=== PATIENT | male | born 1955 | race Caucasian/White ===

== ENCOUNTER 2017-05-10 19:56 | Emergency (ER) | payer OTHER ==
[2017-05-10 20:06] VITALS: PULSE 56; TEMP 97.8; BMI 30.1
[2017-05-10 20:38] LABS: EOSINOPHIL 3.2 % (0-4.5); MCH 28.9 pg (25.7-33.7); MCHC 32.9 g/dl (32.0-35.9); MEAN PLT VOLUME 10.2 fl (7.5-11.1); NEUTROPHILS 60.2 % (42.8-82.8); PLATELET COUNT 237 K/MM3 (134-434); RDW 13.1 % (11.9-15.9); WHITE BLOOD COUNT 8.4 K/mm3 (4.0-10.8)
[2017-05-10 20:49] LABS: INR 1.08 (0.82-1.09); PROTHROMBIN TIME (PATIENT) 12.1 SEC (10.2-13.0)
[2017-05-10 21:01] LABS: CPK 151 IU/L (39-308)
[2017-05-10 21:03] LABS: TROPONIN I (DFP) < 0.03 ng/ml (0.03-0.50)
[2017-05-10] MEDS ORDERED: PANTOPRAZOLE SODIUM 40 MG in SODIUM CHLORIDE 100 ML IVPB ONE (21:07)
[2017-05-10 21:10] LABS: ALBUMIN 4.2 g/dl (3.5-5.0); ALK PHOS 103 U/L (32-92); ANION GAP 3 (8-16); BILIRUBIN,TOTAL 0.6 mg/dl (0.2-1.0); CALCIUM 10.2 mg/dl (8.4-10.2); CO2 29 mmol/L (22-28); CREATININE 1.1 mg/dl (0.6-1.3); GLUCOSE,RANDOM 100 mg/dl (74-106); SGOT/AST 17 U/L (10-42); SGPT/ALT 20 U/L (10-40); TOT PROT 7.6 g/dl (6.4-8.3)
[2017-05-10] MEDS ORDERED: PANTOPRAZOLE SODIUM 40 MG VIAL ONE (21:11)
[2017-05-10 21:44] VITALS: BP 146/92
--- NOTE | 2017-05-10 22:01 | PDOC ---
History of Present Illness - General Chief Complaint: Pain, Acute Stated Complaint: BURNING SENSATION IN ABDOMEN History Source: Patient Exam Limitations: No Limitations - History of Present Illness Initial Comments: 05/10/17 21:59 The patient is a 61 year old male with a significant past medical of HTN, HLD, GERD, heart disease s/p open heart surgery 5 years ago, bleeding ulcer, who presents to the ED with worsening epigastric pain that began 2 weeks ago. Patient describes the pain as burning and radiating throughout the abdomen. Patient states the pain is constant and a 5/10 in severity. Patient states the pain dissipates when he eats or has tums but does not disappear. He states he had an episode of bright red stool this morning, but this is common for him. Patient denies chest pain, fever, chills, nausea, vomiting, diarrhea. Denies dysuria, frequency, hematuria. Patient also comes in stating he has had SOB with exercise and pain in both arms for the past few weeks. 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 Scheduled for Cardiac Cath at [facility] on 05/21. Patient is a former smoker (stopped 7 years ago). Past History - Past Medical History Allergies/Adverse Reactions: Allergies Allergy/AdvReac Type Severity Reaction Status Date / Time No Known Allergies Allergy Verified 05/10/17 19:58 Home Medications: Ambulatory Orders Atorvastatin Ca [Lipitor] 80 mg PO HS 05/10/17 Losartan Potassium 25 mg PO DAILY 05/10/17 Metoprolol Succinate [Toprol Xl -] 50 mg PO DAILY 05/10/17 Anemia: No Asthma: No Cancer: No Cardiac Disorders: Yes ([place] 5 YEARS AGO) CVA: No COPD: No CHF: No Dementia: No Diabetes: No GI Disorders: Yes (ULCER) Disorders: No HTN: Yes Hypercholesterolemia: No Liver Disease: No Seizures: No Thyroid Disease: No - Surgical History Abdominal Surgery: No Appendectomy: No Cardiac Surgery: Yes (BYPASS) Cholecystectomy: No Lung Surgery: No Neurologic Surgery: No Orthopedic Surgery: No - Immunization History Td Vaccination: No - Suicide/Smoking/Psychosocial Hx Smoking Status: Yes Smoking History: Former smoker Have you smoked in the past 12 months: No Number of Cigarettes Smoked Daily: 1 If you are a former smoker, when did you quit?: 7 YEARS Cigars Per Day: 0 Information on smoking cessation initiated: No Hx Alcohol Use: No Drug/Substance Use Hx: No Substance Use Type: Alcohol Hx Substance Use Treatment: No Review of Systems - Review of Systems Able to Perform ROS?: Yes Comments:: 05/10/17 22:00 GENERAL/CONSTITUTIONAL: No fever or chills. No weakness. HEAD, EYES, EARS, NOSE AND THROAT: No change in vision. No ear pain or discharge. No sore throat. CARDIOVASCULAR: + SOB with exercise. No chest pain. RESPIRATORY: No cough, wheezing, or hemoptysis. GASTROINTESTINAL: + epigastric pain. + bloody stool. No nausea, vomiting, diarrhea or constipation. GENITOURINARY: No dysuria, frequency, or change in urination. MUSCULOSKELETAL: No joint or muscle swelling or pain. No neck or back pain. SKIN: No rash NEUROLOGIC: No headache, vertigo, loss of consciousness, or change in strength/ sensation. ENDOCRINE: No increased thirst. No abnormal weight change. HEMATOLOGIC/LYMPHATIC: No anemia, easy bleeding, or history of blood clots. ALLERGIC/IMMUNOLOGIC: No hives or skin allergy. *Physical Exam - Vital Signs Last Vital Signs Temp Pulse Resp BP Pulse Ox 97.8 F 56 L 16 146/92 99 05/10/17 20:01 05/10/17 20:01 05/10/17 20:01 05/10/17 21:43 05/10/17 20:01 - Physical Exam Comments: 05/10/17 22:00 GENERAL: Awake, alert, and fully oriented, in no acute distress HEAD: No signs of trauma EYES: PERRLA, EOMI, sclera anicteric, conjunctiva clear ENT: Auricles normal inspection, hearing grossly normal, nares patent, oropharynx clear without exudates. Moist mucosa NECK: Normal ROM, supple, no lymphadenopathy, JVD, or masses LUNGS: Breath sounds equal, clear to auscultation bilaterally. No wheezes, and no crackles HEART: Regular rate and rhythm, normal S1 and S2, no murmurs, rubs or gallops ABDOMEN: + mild epigastric tenderness and mild right upper quad tenderness without rebound or guarding. no [place] sign. no masses. No nausea, vomiting, diarrhea or constipation. Soft, nontender, normoactive bowel sounds. EXTREMITIES: Normal range of motion, no edema. No clubbing or cyanosis. No cords, erythema, or tenderness NEUROLOGICAL: Cranial nerves II through XII grossly intact. Normal speech, normal gait SKIN: Warm, Dry, normal turgor, no rashes or lesions noted. Heart Score/ECG Review - ECG Intrepretation Comment:: 05/10/17 22:02 Sinus bradycardia, 54 bpm. Possible left atrial enlargement. Inferior infarct, age undetermined. ED Treatment Course - LABORATORY CBC & Chemistry Diagram: 05/10/17 20:30 05/10/17 20:30 - ADDITIONAL ORDERS Additional order review: Laboratory Results 05/10/17 05/10/17 05/10/17 21:15 20:30 20:30 PT with INR 12.1 INR 1.08 Sodium Potassium Chloride Carbon Dioxide Anion Gap BUN Creatinine Creat Clearance w eGFR Random Glucose Calcium Total Bilirubin AST ALT Alkaline Phosphatase Creatine Kinase 151 Creatine Kinase Index 1.5 CK-MB (CK-2) 2.3 Troponin I < 0.03 L Total Protein Albumin Stool Occult Blood Positive 05/10/17 20:30 PT with INR INR Sodium 136 Potassium 4.1 Chloride 104 Carbon Dioxide 29 H Anion Gap 3 L BUN 20 H Creatinine 1.1 Creat Clearance w eGFR > 60 Random Glucose 100 Calcium 10.2 Total Bilirubin 0.6 AST 17 ALT 20 Alkaline Phosphatase 103 H Creatine Kinase Creatine Kinase Index CK-MB (CK-2) Troponin I Total Protein 7.6 Albumin 4.2 Stool Occult Blood 05/10/17 20:30 RBC 4.52 MCV 88.0 MCHC 32.9 RDW 13.1 MPV 10.2 Neutrophils % 60.2 Lymphocytes % 26.2 Monocytes % 9.4 Eosinophils % 3.2 Basophils % 1.0 - Medications Given in the ED: ED Medications Discontinued Medications Generic Name Dose Route Start Last Admin Trade Name Freq PRN Reason Stop Dose Admin Pantoprazole Sodium 40 mg/ 100 mls @ 200 mls/hr 05/10/17 21:07 05/10/17 21:16 Sodium Chloride IVPB 05/10/17 21:36 200 mls/hr ONCE ONE Administration *DC/Admit/Observation/Transfer - Discharge Dispostion Condition at time of disposition: Stable - Referrals Referrals: Nader Wiley MD [Primary Care Provider] - - Attestations Scribe Attestion: 10/16/17 22:01 Documentation prepared by Jaswinder Mcfarland, acting as medical records technician for Laura Linares MD.
--- NOTE | 2017-05-11 23:00 | EKG ---
Test Reason : Blood Pressure : / mmHG Vent. Rate : 054 BPM Atrial Rate : 054 BPM P-R Int : 192 ms QRS Dur : 086 ms QT Int : 426 ms P-R-T Axes : 054 -02 118 degrees QTc Int : 403 ms SINUS BRADYCARDIA POSSIBLE LEFT ATRIAL ENLARGEMENT INFERIOR INFARCT , AGE UNDETERMINED CANNOT RULE OUT ANTERIOR INFARCT (CITED ON OR BEFORE 02-AUG-2011) ABNORMAL ECG WHEN COMPARED WITH ECG OF 02-AUG-2011 20:58, INFERIOR INFARCT IS NOW PRESENT QUESTIONABLE CHANGE IN INITIAL FORCES OF SEPTAL LEADS REPEAT EKG IF CLINICALLY INDICATED Confirmed by CLOVER HERNÁNDEZ MD ([id number]) on 05/11/2017 11:00:44 PM Referred By: DR WALLACE Confirmed By:CLOVER HERNÁNDEZ MD
== END 2017-05-10 22:19 | disposition home or self-care (01) ==
LOC: FER 19:56
PROC: 3E033GC Introduction of Other Therapeutic Substance into Peripheral Vein, Percutaneous Approach (ICD-10-PCS; principal; 2017-05-10)
DX: R10.13 Epigastric pain (principal); I10 Essential (primary) hypertension; E78.5 Hyperlipidemia, unspecified; K21.9 Gastro-esophageal reflux disease without esophagitis; I25.2 Old myocardial infarction; Z87.891 Personal history of nicotine dependence
CPT/HCPCS: 36415; 80053; 82272; 82550; 82553; 84484; 85025; 85610; 93005; 93010; 99282-25

== ENCOUNTER 2018-08-27 18:30 | Inpatient (IN) | payer OTHER | END 2018-08-29 18:13 | disposition home or self-care (01) | LOC: JER 18:30 → JERBED 20:46 → J4W 21:48 ==

== ENCOUNTER 2019-05-27 17:59 | Inpatient (IN) | payer OTHER ==
--- NOTE | 2019-05-27 18:35 | PDOC ---
History of Present Illness - General Chief Complaint: Bleeding from Anus Stated Complaint: RECTAL BLEEDING Time Seen by Provider: 05/27/19 18:34 - History of Present Illness Initial Comments: 05/27/19 18:47 63 year old male with a significant past medical of HTN, HLD, GERD, heart disease s/p open heart surgery 5 years ago, prior bleeding stomach ulcer, who presents to the ED with with 4 days pf dark stools and weakness. The patient reports some slight rlq tenderness. The patient denies any chest pain, shortness of breath, nausea, vomiting, diarrhea or constipation. ROS GENERAL/CONSTITUTIONAL: No fever or chills. No weakness. HEAD, EYES, EARS, NOSE AND THROAT: No change in vision. No ear pain or discharge. No sore throat. CARDIOVASCULAR: No chest pain or shortness of breath RESPIRATORY: No cough, wheezing, or hemoptysis. GASTROINTESTINAL: No nausea, vomiting, diarrhea or constipation. GENITOURINARY: No dysuria, frequency, or change in urination. MUSCULOSKELETAL: No joint or muscle swelling or pain. No neck or back pain. SKIN: No rash NEUROLOGIC: No headache, vertigo, loss of consciousness, or change in strength/ sensation. PE GENERAL: Awake, alert, and fully oriented, in no acute distress HEAD: No signs of trauma, normocephalic, atraumatic EYES: , EOMI, sclera anicteric, + slight conjunctival pallor ENT: oropharynx clear without exudates. Moist mucosa NECK: Normal ROM, supple LUNGS: No distress, speaks full sentences, clear to auscultation bilaterally HEART: Regular rate and rhythm, normal S1 and S2, no murmurs, rubs or gallops, peripheral pulses normal and equal bilaterally. ABDOMEN: Soft, + very slight tenderness to RLQ. No guarding, no rebound. No masses EXTREMITIES : Normal inspection, Normal range of motion, no edema. No clubbing or cyanosis. NEUROLOGICAL: Cranial nerves II through XII grossly intact. Normal speech, normal gait, no focal sensorimotor deficits SKIN: Warm, Dry, normal turgor, no rashes or lesions noted RECTAL: no external henorrhoids, no gross blood, good rectal tone MDM DDX including but not limited to: LGIB (fissure vs hemorrhoid vs diverticular dz vs Crohns vs UC) vs UGIB (PUD vs gastroesophageal varices vs erosive gastritis/ esophagitis) ED Course: patient with H/H drop from baseline 2prbc ordered Case discussed with Dr. Bond who precommends protonix drip, npo after midnight, will see patient in am clear liquids in am if hd stable plan for admission ekg: nsr at 73bpm, nonspecific t wave changes Ashlee Evans, PGY2 Emergency Medicine 05/27/19 20:12 Past History - Past Medical History Allergies/Adverse Reactions: Allergies Allergy/AdvReac Type Severity Reaction Status Date / Time No Known Allergies Allergy Verified 05/27/19 18:01 Home Medications: Ambulatory Orders Atorvastatin Ca [Lipitor] 80 mg PO HS 05/10/17 Metoprolol Succinate [Toprol XL -] 50 mg PO DAILY 05/10/17 Amlodipine Besylate [Norvasc -] 5 mg PO DAILY 08/27/18 Aspirin [ASA -] 81 mg PO DAILY 08/27/18 Furosemide [Lasix -] 20 mg PO DAILY 08/27/18 Anemia: No Asthma: No Cancer: No Cardiac Disorders: Yes ([place] 5 YEARS AGO) CVA: No COPD: No CHF: No Dementia: No Diabetes: No GI Disorders: Yes (ULCER) Disorders: No HTN: Yes Hypercholesterolemia: No Liver Disease: No Seizures: No Thyroid Disease: No - Surgical History Abdominal Surgery: No Appendectomy: No Cardiac Surgery: Yes (BYPASS) Cholecystectomy: No Lung Surgery: No Neurologic Surgery: No Orthopedic Surgery: No - Immunization History Td Vaccination: No - Psycho Social/Smoking Cessation Hx Smoking Status: Yes Smoking History: Never smoked Have you smoked in the past 12 months: No Number of Cigarettes Smoked Daily: 1 If you are a former smoker, when did you quit?: 7 YEARS Cigars Per Day: 0 Hx Alcohol Use: No Drug/Substance Use Hx: No Substance Use Type: Alcohol Hx Substance Use Treatment: No *Physical Exam - Vital Signs Last Vital Signs Temp Pulse Resp BP Pulse Ox 98.2 F 87 18 134/77 99 05/27/19 18:00 05/27/19 18:00 05/27/19 18:00 05/27/19 18:00 05/27/19 18:00 ED Treatment Course - LABORATORY CBC & Chemistry Diagram: 05/27/19 18:59 05/27/19 18:59
[2019-05-27 19:08] LABS: HEMATOCRIT 25.6 % (35.4-49); LYMPH % 24.4 % (8-40); MCH 31.4 pg (25.7-33.7); MCHC 35.3 g/dl (32.0-35.9); MEAN PLT VOLUME 9.2 fl (7.5-11.1); MONO % 7.5 % (3.8-10.2); NEUT % 65.1 % (42.8-82.8); PLATELET COUNT 225 K/MM3 (134-434); RBC 2.88 M/mm3 (4.00-5.60); RDW 13.6 % (11.9-15.9); WHITE BLOOD COUNT 7.1 K/mm3 (4.0-10.0)
[2019-05-27 19:21] LABS: INR 1.03 (0.83-1.09); PROTHROMBIN TIME (PATIENT) 12.2 SEC (9.7-13.0)
[2019-05-27 19:23] LABS: ACTIVATED PTT 29.8 SECONDS (25.2-36.5)
[2019-05-27 19:24] LABS: EPI CELLS 0.7 /HPF (0-5/HPF); HYALINE CASTS 1 /lpf (0-8); PH,URINE 5.5 (5.0-8.0); URINE APPEARANCE CLEAR; URINE BACTERIA 0.5 /hpf (NEGATIVE); URINE BILIRUBIN NEGATIVE (NEGATIVE); URINE COLOR YELLOW; URINE GLUCOSE (UA) NEGATIVE (NEGATIVE); URINE KETONE NEGATIVE (NEGATIVE); URINE LEUK ESTERASE TRACE (NEGATIVE); URINE NITRITE NEGATIVE (NEGATIVE); URINE PROTEIN NEGATIVE (NEGATIVE); URINE RBC 1 /hpf (0-4); URINE UROBILINOGEN 0.2 mg/dL (0.2-1.0); URINE WBC 7 /hpf (0-5)
--- NOTE | 2019-05-27 19:35 | PDOC ---
Attending Attestation - Resident Resident Name: Ashlee Evans - ED Attending Attestation I have performed the following: The case was reviewed & discussed with the resident, I agree w/resident's findings & plan - HPI HPI: 05/27/19 23:18 agree with resident hpi - Physicial Exam PE: 05/27/19 23:18 see resident exam - Medical Decision Making 05/27/19 23:19 63-year-old male with rectal bleeding Previous endoscopy consistent with peptic ulcer disease Stool guaiac is positive, exam consistent with melena GI to consult Will admit to medical service for further evaluation
[2019-05-27 19:38] LABS: ALBUMIN 3.3 g/dl (3.4-5.0); BILIRUBIN,TOTAL 0.2 mg/dL (0.2-1); BLOOD UREA NITROGEN 32.2 mg/dL (7-18); CALCIUM 8.6 mg/dL (8.5-10.1); CREATININE 0.8 mg/dL (0.55-1.3); POTASSIUM 4.2 mmol/L (3.5-5.1); TOT PROT 6.4 g/dl (6.4-8.2)
[2019-05-27] MEDS ORDERED: PANTOPRAZOLE SODIUM 40 MG VIAL IVPUSH ONE (19:41)
[2019-05-27] MEDS ORDERED: PANTOPRAZOLE SODIUM 40 MG/100 ML BAG IVPB ONE (19:46)
[2019-05-27] MEDS ORDERED: PANTOPRAZOLE SODIUM 40 MG VIAL ONE (20:23)
[2019-05-27] MEDS: PANTOPRAZOLE SODIUM 80 MG in SODIUM CHLORIDE 100 ML IVPB SCH (21:04)
[2019-05-27] MEDS ORDERED: SODIUM CHLORIDE 1,000 ML IV SCH (23:00)
--- NOTE | 2019-05-27 23:03 | PN ---
Teaching Attending Note Name of Resident: Rod Haider ATTENDING PHYSICIAN STATEMENT I saw and evaluated the patient. I reviewed the resident's note and discussed the case with the resident. I agree with the resident's findings and plan as documented. SUBJECTIVE: 63-year-old male with a history of hypertension, dyslipidemia, GERD, CAD status post CABG 10 years ago. Bleeding peptic ulcer 4 days of dark stools and weakness. Denied any vomiting, chest pain, shortness of breath, diarrhea. He does endorse some epigastric tenderness. Patient was seen by Dr. Mixon this past August s/p egd - showed small nonbleeding ulcer in duodenal bulb vs. pyloric channel as likely source of bleed. OBJECTIVE: Last Vital Signs Temp Pulse Resp BP Pulse Ox 98 F 73 18 115/68 97 05/27/19 20:35 05/27/19 20:35 05/27/19 20:35 05/27/19 20:35 05/27/19 20:35 GENERAL: Well developed, well nourished. Awake and alert. No acute distress. HEENT: Normocephalic, atraumatic. PERRLA, EOMI. conjunctival pallor. Sclera are non- icteric. Moist mucous membranes. Oropharynx is clear. NECK: Supple. Full ROM. No JVD. Carotid pulses 2+ and symmetric, without bruits. No thyromegaly. No lymphadenopathy. CARDIOVASCULAR: Regular rate and rhythm. No murmurs, rubs, or gallops. Distal pulses are 2+ and symmetric. PULMONARY: No evidence of respiratory distress. Lungs clear to auscultation bilaterally. No wheezing, rales or rhonchi. ABDOMINAL: Soft. Non-tender. Non-distended. No rebound or guarding. No organomegaly. Normoactive bowel sounds. MUSCULOSKELETAL Normal range of motion at all joints. No bony deformities or tenderness. No CVA tenderness. EXTREMITIES: No cyanosis. No clubbing. No edema. No calf tenderness. SKIN: Warm and dry. Normal capillary refill. No rashes. No jaundice. PSYCHIATRIC: Cooperative. Good eye contact. Appropriate mood and affect. Abnormal Lab Results 05/27/19 05/27/19 05/27/19 18:59 18:59 20:08 RBC 2.88 L Hgb 9.0 L Hct 25.6 L D Anion Gap 3 L BUN 32.2 H Albumin 3.3 L Crossmatch See Detail Imaging reviewed ASSESSMENT AND PLAN: #63-year-old male with suspected upper GI bleed. Likely secondary to peptic ulcers which are known from his previous medical history. Patient is hemodynamically stable for admission to floor at this time. Admit to [facility] Protonix drip IV fluid hydration Monitor CBC every 6 hours Keep n.p.o. BGM's every 6 hours Monitor vital signs closely GI consult Stop aspirin #Normocytic anemiasuspected to be secondary to upper GI bleed. Noted to have drop in hemoglobin from 11 g per deciliter to 9 g/dL on this admission. Anemia may be multifactorial. Ferritin, iron studies, vitamin B12, red blood smear Monitor CBC closely If persistent melena or dramatic drop in CBC would transfuse PRBC #CAD status post CABG Hold aspirin as patient is bleeding Continue metoprolol succinate Continue high-dose Lipitor Continue Lasix for now but monitor BP closely Continue amlodipine SCDs for DVT prophylaxis
--- NOTE | 2019-05-28 01:06 | HP ---
CHIEF COMPLAINT: Blood in stool PCP: Does not have one. Industrial Waste Inspector: Dr Garsia HISTORY OF PRESENT ILLNESS: 63 y/o M, pmh of CAD s/p CABG 5 years ago at [facility], prior transfusions for GI bleed, PUD, HTN, HLD, seizure hx, presents c/o of blood in the stool. As per pt , on night when he used the bathroom, he found blood in the stool like he had in the past, which prompted him to come to the hospital. In August 2018 , he was admitted for a blood in the stool 2/2 to a PUD diagnosed on EGD, requiring a transfusion at the time. The EGD showed small nonbleeding ulcer in duodenal bulb vs. pyloric channel as likely source of bleed. Pt was suppose to f /u with his GI doctor, but due to lack of insurance, he was not able to f/u. Pt also reports a similar episode 10 years ago, during which he required a transfusion and a EGD also. Upon arrival to the ED, pt was found to be anemia on his lab w/ a Hg of 9. He was transfused 1 u PRBC in the ED. Currently, pt admits to hematochezia but pt denies f/c/n/v/d, chest pain, sob, dizziness, abdominal pain, numbness or tingling, urinary symptoms. ER course was notable for: (1) 1 u PRBC transfused (2) CT a/p- atelectasis and scarring in lung bases, [id number] renal calculi at the right ureteropelvic junction, 2.4 cm fusiform aneurysm of the mid abdominal aorta (3) Recent Travel: denies PAST MEDICAL HISTORY: CAD s/p CABG 5 years ago at [facility], prior transfusions for GI bleed, PUD, HTN, HLD , Hx of Seizures PAST SURGICAL HISTORY: CAD s/p CABG, multiple EGDs Social History: Smoking: Alcohol: Drugs: Allergies No Known Allergies Allergy (Verified 05/27/19 18:01) HOME MEDICATIONS: Home Medications Medication Instructions Recorded Atorvastatin Ca [Lipitor] 80 mg PO HS 05/10/17 Metoprolol Succinate [Toprol XL -] 50 mg PO DAILY 05/10/17 Amlodipine Besylate [Norvasc -] 5 mg PO DAILY 08/27/18 Aspirin [ASA -] 81 mg PO DAILY 08/27/18 Furosemide [Lasix -] 20 mg PO DAILY 08/27/18 REVIEW OF SYSTEMS CONSTITUTIONAL: Absent: fever, chills, diaphoresis, loss of appetite, weight change HEENT: Absent: rhinorrhea, , visual changes CARDIOVASCULAR: Absent: chest pain, syncope, palpitations, irregular heart rate, lightheadedness , RESPIRATORY: Absent: cough, shortness of breath, dyspnea with exertion, orthopnea, wheezing, GASTROINTESTINAL: Admits to hematochezia Absent: abdominal pain, abdominal distension, nausea, vomiting, diarrhea, constipation NEUROLOGIC: Admits to hx of seizures Absent: headache, focal weakness or paresthesias, dizziness, unsteady gait, bladder or bowel incontinence PHYSICAL EXAMINATION Vital Signs - 24 hr 05/27/19 05/27/19 18:00 20:35 Temperature 98.2 F 98 F Pulse Rate 87 Pulse Rate [ 73 Radial] Respiratory 18 18 Rate Blood Pressure 134/77 Blood Pressure 115/68 [Left Arm] O2 Sat by Pulse 99 97 Oximetry (%) GENERAL: Awake, alert, and fully oriented, in no acute distress. EYES: Pupils equal, round and reactive to light, extraocular movements intact, EARS, NOSE, THROAT: Moist mucous membranes. NECK: Normal range of motion, supple LUNGS: Breath sounds equal, clear to auscultation bilaterally. No wheezes, and no crackles. HEART: Regular rate and rhythm, normal S1 and S2 without murmur, rub or gallop. ABDOMEN: Soft, Tender to deep palpation in the Left lateral abdominal wall and LUQ, not distended, normoactive bowel sounds, no guarding, no rebound, no masses. UPPER EXTREMITIES: 2+ pulses, warm, well-perfused. No cyanosis. LOWER EXTREMITIES: 2+ pulses, warm, well-perfused. PSYCHIATRIC: Cooperative. Good eye contact. Appropriate mood and affect. Laboratory Results - last 24 hr CBC,CMP WBC 7.1 K/mm3 (4.0-10.0) 05/27/19 18:59 RBC 2.88 M/mm3 (4.00-5.60) L 05/27/19 18:59 Hgb 9.0 GM/dL (11.7-16.9) L 05/27/19 18:59 Hct 25.6 % (35.4-49) L D 05/27/19 18:59 MCV 89.0 fl (80-96) 05/27/19 18:59 MCH 31.4 pg (25.7-33.7) 05/27/19 18:59 MCHC 35.3 g/dl (32.0-35.9) 05/27/19 18:59 RDW 13.6 % (11.9-15.9) 05/27/19 18:59 Plt Count 225 K/MM3 (134-434) 05/27/19 18:59 MPV 9.2 fl (7.5-11.1) 05/27/19 18:59 Absolute Neuts (auto) 4.6 K/mm3 (1.5-8.0) 05/27/19 18:59 Neutrophils % 65.1 % (42.8-82.8) 05/27/19 18:59 Lymphocytes % 24.4 % (8-40) 05/27/19 18:59 Monocytes % 7.5 % (3.8-10.2) 05/27/19 18:59 Eosinophils % 2.0 % (0-4.5) 05/27/19 18:59 Basophils % 1.0 % (0-2.0) 05/27/19 18:59 Nucleated RBC % 0 % (0-0) 05/27/19 18:59 Sodium 139 mmol/L (136-145) 05/27/19 18:59 Potassium 4.2 mmol/L (3.5-5.1) 05/27/19 18:59 Chloride 106 mmol/L (98-107) 05/27/19 18:59 Carbon Dioxide 29 mmol/L (21-32) 05/27/19 18:59 Anion Gap 3 MMOL/L (8-16) L 05/27/19 18:59 BUN 32.2 mg/dL (7-18) H 05/27/19 18:59 Creatinine 0.8 mg/dL (0.55-1.3) 05/27/19 18:59 Est GFR (CKD-EPI)AfAm 110.19 05/27/19 18:59 Est GFR (CKD-EPI)NonAf 95.07 05/27/19 18:59 Random Glucose 92 mg/dL (74-106) 05/27/19 18:59 Calcium 8.6 mg/dL (8.5-10.1) 05/27/19 18:59 Total Bilirubin 0.2 mg/dL (0.2-1) 05/27/19 18:59 AST 17 U/L (15-37) 05/27/19 18:59 ALT 26 U/L (13-61) 05/27/19 18:59 Alkaline Phosphatase 88 U/L (45-117) 05/27/19 18:59 Troponin I 0.02 ng/ml (0.00-0.05) 05/27/19 18:59 Total Protein 6.4 g/dl (6.4-8.2) 05/27/19 18:59 Albumin 3.3 g/dl (3.4-5.0) L 05/27/19 18:59 ASSESSMENT/PLAN: 63 y/o M, pmh of CAD s/p CABG 5 years ago at [facility], prior transfusions for GI bleed, PUD, HTN, HLD, seizure hx, presents c/o of blood in the stool likely secondary to peptic ulcers due to pertinent hx of ulcers #Hematochezia 2/2 to PUD IV protonix Fluids at 83 CBC and CMP Q6H NPO expect for PO meds Monitor BGM every 6 hrs Monitor vital signs closely GI consult in the am Discontinue aspirin #Normocytic anemia 2/2 to GI bleed Drop in hemoglobin from 11 to 9 g/dL on this admission Previous visits were Hg of 14 Ferritin, iron studies, vitamin B12, red blood smear- ordered #CAD s/p CABG Hold aspirin due to risk of worsening GI bleed #HTN Continue amlodipine Cont metoprolol succinate Cont Lasix for now but monitor BP closely #HLD Continue high-dose Lipitor #Abdominal Aortic aneurysm CT a/p- atelectasis and scarring in lung bases, [id number] renal calculi at the right ureteropelvic junction, 2.4 cm fusiform aneurysm of the mid abdominal aorta Monitor for now #DVT ppx SCDs FEN monitor lytes NPO Dispo: consult GI in am, keep NPO, cont IV protonix Visit type - Emergency Visit Emergency Visit: Yes ED Registration Date: 05/27/19 Care time: The patient presented to the Emergency Department on the above date and was hospitalized for further evaluation of their emergent condition. - New Patient This patient is new to me today: Yes Date on this admission: 05/31/19 - Critical Care Critical Care patient: No ATTENDING PHYSICIAN STATEMENT I saw and evaluated the patient. I reviewed the resident's note and discussed the case with the resident. I agree with the resident's findings and plan as documented. SUBJECTIVE: OBJECTIVE: ASSESSMENT AND PLAN:
[2019-05-28] MEDS: PANTOPRAZOLE SODIUM 80 MG in SODIUM CHLORIDE 100 ML IVPB SCH ×3 (02:47→19:00)
[2019-05-28 03:08] VITALS: BMI 26.9
--- NOTE | 2019-05-28 07:06 | CON.GI ---
Consult - History of Present Illness History of Present Illness: GI CONSULT DICTATED NPO / IVF' S PPI INFUSION HOLD ASA EGD WEDNESDAY MORNING WILL DISCUSS WITH DR Sachi GUTIERREZ WHO WILL RESUME CARE WEDNESDAY IF ANY SIGN OF OVERT GI BLEED WILL PLAN FOR URGENT EGD TODAY SEE FULL CONSULT DICTATED - Past Medical History Cardio/Vascular: Yes: CAD, HTN, Other (CABG) - Alcohol/Substance Use Hx Alcohol Use: No - Smoking History Smoking history: Never smoked Have you smoked in the past 12 months: No Aproximately how many cigarettes per day: 1 If you are a former smoker, when did you quit?: 7 YEARS Home Medications - Allergies Allergies/Adverse Reactions: Allergies Allergy/AdvReac Type Severity Reaction Status Date / Time No Known Allergies Allergy Verified 05/27/19 18:01 - Home Medications Home Medications: Ambulatory Orders Atorvastatin Ca [Lipitor] 80 mg PO HS 05/10/17 Metoprolol Succinate [Toprol XL -] 50 mg PO DAILY 05/10/17 Amlodipine Besylate [Norvasc -] 5 mg PO DAILY 08/27/18 Aspirin [ASA -] 81 mg PO DAILY 08/27/18 Furosemide [Lasix -] 20 mg PO DAILY 08/27/18 Physical Exam-GI Vital Signs: Vital Signs Temperature 97.6 F 05/27/19 21:30 Pulse Rate 77 05/27/19 21:30 Respiratory Rate 18 05/27/19 21:30 Blood Pressure 132/80 05/27/19 21:30 O2 Sat by Pulse Oximetry (%) 97 05/27/19 21:30 Labs: CBC, BMP 05/27/19 18:59 05/27/19 18:59 INR, PTT INR 1.03 (0.83-1.09) 05/27/19 18:59
[2019-05-28 07:40] LABS: BASO % 0.6 % (0-2.0); EOS % 0.5 % (0-4.5); HEMATOCRIT 22.6 % (35.4-49); HEMOGLOBIN 7.6 GM/dL (11.7-16.9); LYMPH % 18.3 % (8-40); MCH 30.2 pg (25.7-33.7); MCHC 33.9 g/dl (32.0-35.9); MEAN CELL VOLUME 89.1 fl (80-96); MEAN PLT VOLUME 9.4 fl (7.5-11.1); MONO % 5.8 % (3.8-10.2); NEUT % 74.8 % (42.8-82.8); PLATELET COUNT 206 K/MM3 (134-434); RBC 2.53 M/mm3 (4.00-5.60); RDW 13.8 % (11.9-15.9); WHITE BLOOD COUNT 8.4 K/mm3 (4.0-10.0)
[2019-05-28 08:22] LABS: ALBUMIN 3.2 g/dl (3.4-5.0); BILIRUBIN,TOTAL 0.3 mg/dL (0.2-1); CALCIUM 8.3 mg/dL (8.5-10.1); CREATININE 0.7 mg/dL (0.55-1.3); POTASSIUM 4.3 mmol/L (3.5-5.1); TOT PROT 5.7 g/dl (6.4-8.2)
--- NOTE | 2019-05-28 08:40 | PN ---
Progress Note (short form) - Note Progress Note: Subjective: No fever or chills. No COCHRAN , feels light headed when he tried to get up. last BM was 5 pm yesterday. reports melena since . he denies abd pain or rectal pain. last ASA was 2pm yesterday. . has nausea but no vomiting Objective: Vital Signs: Last Vital Signs Temp Pulse Resp BP Pulse Ox 98.5 F 73 18 96/60 97 05/28/19 06:00 05/28/19 06:00 05/28/19 06:00 05/28/19 06:00 05/27/19 21:30 Laboratory Results - last 24 hr 05/27/19 05/27/19 05/27/19 18:59 18:59 18:59 WBC 7.1 RBC 2.88 L Hgb 9.0 L Hct 25.6 L D MCV 89.0 MCH 31.4 MCHC 35.3 RDW 13.6 Plt Count 225 MPV 9.2 Absolute Neuts (auto) 4.6 Neutrophils % 65.1 Lymphocytes % 24.4 Monocytes % 7.5 Eosinophils % 2.0 Basophils % 1.0 Nucleated RBC % 0 PT with INR 12.20 INR 1.03 PTT (Actin FS) 29.8 Sodium 139 Potassium 4.2 Chloride 106 Carbon Dioxide 29 Anion Gap 3 L BUN 32.2 H Creatinine 0.8 Est GFR (CKD-EPI)AfAm 110.19 Est GFR (CKD-EPI)NonAf 95.07 Random Glucose 92 Calcium 8.6 Total Bilirubin 0.2 AST 17 ALT 26 Alkaline Phosphatase 88 Troponin I 0.02 Total Protein 6.4 Albumin 3.3 L Urine Color Urine Appearance Urine pH Ur Specific [place] Urine Protein Urine Glucose (UA) Urine Ketones Urine Blood Urine Nitrite Urine Bilirubin Urine Urobilinogen Ur Leukocyte Esterase Urine WBC (Auto) Urine RBC (Auto) Urine Casts (Auto) U Epithel Cells (Auto) Urine Bacteria (Auto) Stool Occult Blood Blood Type Antibody Screen Crossmatch 05/27/19 05/27/19 05/27/19 19:00 19:10 20:08 WBC RBC Hgb Hct MCV MCH MCHC RDW Plt Count MPV Absolute Neuts (auto) Neutrophils % Lymphocytes % Monocytes % Eosinophils % Basophils % Nucleated RBC % PT with INR INR PTT (Actin FS) Sodium Potassium Chloride Carbon Dioxide Anion Gap BUN Creatinine Est GFR (CKD-EPI)AfAm Est GFR (CKD-EPI)NonAf Random Glucose Calcium Total Bilirubin AST ALT Alkaline Phosphatase Troponin I Total Protein Albumin Urine Color Yellow Urine Appearance Clear Urine pH 5.5 Ur Specific [place] 1.022 Urine Protein Negative Urine Glucose (UA) Negative Urine Ketones Negative Urine Blood Negative Urine Nitrite Negative Urine Bilirubin Negative Urine Urobilinogen 0.2 Ur Leukocyte Esterase Trace Urine WBC (Auto) 7 Urine RBC (Auto) 1 Urine Casts (Auto) 1 U Epithel Cells (Auto) 0.7 Urine Bacteria (Auto) 0.5 Stool Occult Blood Positive Blood Type O POSITIVE Antibody Screen Negative Crossmatch See Detail 05/28/19 05/28/19 07:20 07:20 WBC 8.4 RBC 2.53 L Hgb 7.6 L Hct 22.6 L MCV 89.1 MCH 30.2 MCHC 33.9 RDW 13.8 Plt Count 206 MPV 9.4 Absolute Neuts (auto) 6.3 Neutrophils % 74.8 Lymphocytes % 18.3 D Monocytes % 5.8 Eosinophils % 0.5 Basophils % 0.6 Nucleated RBC % 0 PT with INR INR PTT (Actin FS) Sodium 142 Potassium 4.3 Chloride 110 H Carbon Dioxide 28 Anion Gap 4 L BUN 26.0 H Creatinine 0.7 Est GFR (CKD-EPI)AfAm 116.40 Est GFR (CKD-EPI)NonAf 100.43 Random Glucose 97 Calcium 8.3 L Total Bilirubin 0.3 AST 13 L ALT 23 Alkaline Phosphatase 69 Troponin I Total Protein 5.7 L Albumin 3.2 L Urine Color Urine Appearance Urine pH Ur Specific [place] Urine Protein Urine Glucose (UA) Urine Ketones Urine Blood Urine Nitrite Urine Bilirubin Urine Urobilinogen Ur Leukocyte Esterase Urine WBC (Auto) Urine RBC (Auto) Urine Casts (Auto) U Epithel Cells (Auto) Urine Bacteria (Auto) Stool Occult Blood Blood Type Antibody Screen Crossmatch Physical Exam: NAD , awake, alert, cooperative , pale conjunctivae and MM. dry MM CV; RRR, 2/6 SM at base . Lungs: CTAB Abd: soft, TTP in suprapubic area, nl BS , no rebound or guarding Ext: No edema or erythema on upper or lower extremities Imaging: CT of abd/p pending read. Assessment/Plan: 89 y/o gentleman with h/o PUD, upper GI Bleed, CAD s/p CABG, GERD, HTN, who presented with melena x 3 days . He was found to be anemic. 1- GI bleed, likely upper. patient is hypotensive and light headed. Hb dropped. id not receive blood last night - Will increase IVF - spoke to blood bank to transfuse a unit of RBC - Spoke to [employer] HE[employer] UNDERWRITER. Loan , patient is accepted to ICU . will transfer - cont PPI gtt - hold asa . last use 2pm yesterday - hold all BP meds and lasix - GI eval pending. Note pending Recs. 2- Acute blood loss anemia: - transfuse 1 unit - reepat HB after transfusion 3- H/o HTN: Now hypotensive , dc all BP MEds DVT px: SCDs patient meds were confirmed with him, he does not remember doses . will need to confirm TX to ICU CCT 30 min Visit type - Emergency Visit Emergency Visit: Yes ED Registration Date: 05/27/19 Care time: The patient presented to the Emergency Department on the above date and was hospitalized for further evaluation of their emergent condition. - New Patient This patient is new to me today: Yes Date on this admission: 05/28/19 - Critical Care Critical Care patient: Yes Total Critical Care Time (in minutes): 30 Critical Care Statement: The care of this patient involved high complexity decision making to prevent further life threatening deterioration of the patient 's condition and/or to evaluate & treat vital organ system(s) failure or risk of failure.
[2019-05-28] MEDS: SODIUM CHLORIDE 1,000 ML IV SCH ×2 (09:10→23:45)
--- NOTE | 2019-05-28 09:51 | CONSULT ---
Consult Consult Specialty:: Pulm/CCM Reason for Consultation:: GIB - History of Present Illness Chief Complaint: Reported [id number], now with worsening anemia and hypotension History of Present Illness: 63 y/o M, pmh of CAD s/p CABG 5 years ago at [facility], prior transfusions for GI bleed, PUD, HTN, HLD, seizure hx, who presents to ED with c/o of blood in the stool as of night. Pt with episode of GIB in aug 2018 s/p EGD which was s/f small non bleeding ulcer in the duodenal bulb vs pyloric channel. Pt was lost to f/u 2/ lack of insurance and now presents with recurrent GIB m/l i /s/o ASA use. In the ED he was HD stable. He received 1U PRBC for hgb 9 down from 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 He was started on PPI drip and transferred to the floor for further management. GI was consulted with plan for EGD in am. This am pt reported to be lightheaded when OOB with drop in SBP to 90's. No report of hematochezia/melena on the floor. He was transferred to ICU for further management. Antihypertensives now held. In ICU rec'd A+O x3, BP 106/70, HR 74, O2 sat 100% on room air. 1 U PRBC trasfusing. - History Source History Provided By: Patient, Medical Record - Past Medical History Cardio/Vascular: Yes: CAD, HTN, Other (CABG) - Past Surgical History Past Surgical History: Yes: CABG - Alcohol/Substance Use Hx Alcohol Use: No - Smoking History Smoking history: Never smoked Have you smoked in the past 12 months: No Aproximately how many cigarettes per day: 1 If you are a former smoker, when did you quit?: 7 YEARS - Social History History of Recent Travel: No Home Medications - Allergies Allergies/Adverse Reactions: Allergies Allergy/AdvReac Type Severity Reaction Status Date / Time No Known Allergies Allergy Verified 05/27/19 18:01 - Home Medications Home Medications: Ambulatory Orders Atorvastatin Ca [Lipitor] 80 mg PO HS 05/10/17 Metoprolol Succinate [Toprol XL -] 50 mg PO DAILY 05/10/17 Amlodipine Besylate [Norvasc -] 5 mg PO DAILY 08/27/18 Aspirin [ASA -] 81 mg PO DAILY 08/27/18 Furosemide [Lasix -] 20 mg PO DAILY 08/27/18 Family Medical History Family History: Unremarkable Review of Systems - Review of Systems Constitutional: reports: No Symptoms Eyes: reports: No Symptoms HENT: reports: No Symptoms Neck: reports: No Symptoms Cardiovascular: reports: No Symptoms Respiratory: reports: No Symptoms Gastrointestinal: reports: No Symptoms Genitourinary: reports: No Symptoms Breasts: reports: No Symptoms Reported Musculoskeletal: reports: No Symptoms Integumentary: reports: No Symptoms Neurological: reports: Dizziness Endocrine: reports: No Symptoms Hematology/Lymphatic: reports: No Symptoms Psychiatric: reports: No Symptoms Pain Intensity: 0 Physical Exam Vital Signs: Vital Signs Temperature 98.9 F 05/28/19 08:15 Pulse Rate 75 05/28/19 08:15 Respiratory Rate 20 05/28/19 08:15 Blood Pressure 93/63 05/28/19 08:15 O2 Sat by Pulse Oximetry (%) 98 05/28/19 08:15 Constitutional: Yes: Well Nourished, No Distress, Calm Eyes: Yes: WNL, Conjunctiva Clear HENT: Yes: Atraumatic, Normocephalic Neck: Yes: Supple, Trachea Midline Cardiovascular: Yes: Regular Rate and Rhythm Respiratory: Yes: Regular, CTA Bilaterally Gastrointestinal: Yes: Normal Bowel Sounds, Soft ...Rectal Exam: Yes: Deferred Renal/: Yes: WNL Musculoskeletal: Yes: WNL Extremities: Yes: WNL Edema: No Peripheral Pulses WNL: Yes Integumentary: Yes: WNL Neurological: Yes: WNL, Alert, Oriented ...Motor Strength: WNL Psychiatric: Yes: WNL Labs: CBC, BMP 05/28/19 07:20 05/28/19 07:20 Imaging - Results Cat Scan: Report Reviewed (13 x 10 x 10 mm obstructing stone just distal to the right ureteropelvic junction resulting in moderate right renal hydronephrosis. Partially exophytic low-attenuation lesion in the right kidney measuring 1.6 cm, of indeterminate consistency for which correlation with ultrasound is needed to evaluate for a cystic versus solid lesion Focal fusiform dilatation of the distal abdominal aorta measuring 2.4 cm in AP dimension. 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 Plan: -GI aware of pt, plan for EGD in am -NPO except meds -Maintain large bore IV access -PPI drip -Serial CBC q6h -Maintain HGB>8 -Hold ASA and antihypertensives -IV hydration -HD monitoring Loan Goldsmith, ACNP Pulm/CCM RETURN TO VENDOR
[2019-05-28] MEDS ORDERED: FUROSEMIDE 20 MG TABLET (FP) PO SCH (10:00)
[2019-05-28] MEDS ORDERED: amLODIPine BESYLATE 5 MG TABLET (FP) PO SCH (10:00)
[2019-05-28] MEDS: MUPIROCIN 2% TOPICAL OINTMENT FOR DECOLONIZATION NS SCH ×2 (10:57→22:10)
[2019-05-28 13:08] LABS: HEMATOCRIT 25.3 % (35.4-49); HEMOGLOBIN 8.8 GM/dL (11.7-16.9); MCH 31.7 pg (25.7-33.7); MCHC 34.5 g/dl (32.0-35.9); MEAN CELL VOLUME 91.7 fl (80-96); MEAN PLT VOLUME 9.2 fl (7.5-11.1); PLATELET COUNT 190 K/MM3 (134-434); RBC 2.77 M/mm3 (4.00-5.60); RDW 14.2 % (11.9-15.9); WHITE BLOOD COUNT 7.6 K/mm3 (4.0-10.0)
--- NOTE | 2019-05-28 19:15 | CONS ---
DATE OF CONSULTATION: DATE OF DICTATION: 05/28/2019 HISTORY OF PRESENT ILLNESS: The patient is a 63-year-old man, past medical history of CAD, bypass surgery 5 years ago, currently on aspirin, prior transfusions for GI bleed, and history of peptic ulcer disease as well as hypertension, hyperlipidemia, seizure disorder, who apparently had an endoscopy done in August by Dr. Mixon, who is his agency recruiter, and at the time was diagnosed with peptic ulcer. He did not follow up secondary to insurance reasons at the time. For 3 days prior to coming to the hospital, as per his family he had dark stool. He denied any hematochezia, nausea, vomiting, abdominal pain, or hematemesis. No history of syncope, shortness of breath, or dizziness. PAST MEDICAL AND SURGICAL HISTORY: As listed in the HPI. ALLERGIES: No known drug allergies. SOCIAL HISTORY: Does not smoke or drink. HOME MEDICATIONS: Atorvastatin, Toprol, Norvasc, aspirin, and Lasix. REVIEW OF SYSTEMS: As per the HPI. PHYSICAL EXAMINATION: Vital Signs: Temperature 97, pulse 72, blood pressure 98/64, respiratory rate 12, oxygen saturation 99% on room air. General: No acute distress. HEENT: Anicteric sclerae. Cardiovascular: S1, S2, regular rate and rhythm. Lungs: Bilaterally clear to auscultation. Abdomen: Soft and nontender. Extremities: Without edema. LABORATORY DATA: White blood cell count 7.6, hemoglobin and hematocrit on admission last night 9. He did not receive any blood, and this morning it came down to 7.6, currently is 8.8, hematocrit 25, platelet count 190, INR 1. Sodium 142, potassium 4.3, BUN 26, creatinine 0.7, glucose 97, AST 123, ALT 23, alkaline phosphatase 69, total bilirubin 0.3. Urine negative. Stool for occult blood was positive. He had a CT scan of the abdomen and pelvis, which revealed 13 x 10 x 10 obstructing stone just distal to the right ureteropelvic junction resulting in moderate right hydronephrosis, partially exophytic low-attenuation lesion in the right kidney measuring 1.6 cm, of indeterminate consistency, for which correlation with ultrasound is needed to evaluate for cystic versus solid lesion. Focal fusiform dilation of the distal abdominal aorta measuring 2.4 cm. Diverticulosis without diverticulitis. IMPRESSION: Anemia with a history of melena. He has not had any further episodes of melena while hospitalized. There is no sign of an overt GI bleed at this time. RECOMMENDATION: N.p.o., IV fluids, Protonix drip. Avoid NSAID. Hold aspirin. Serial CBCs q.8 hours. NICU care. Will plan for a diagnostic upper endoscopy Wednesday. Will discuss the case with Dr. Mixon, who is his doctor, as per the family. If he were to develop any sign of an overt GI bleed, an urgent endoscopy will be performed today. DO LUIS BUNN/[id number]
[2019-05-28 19:48] LABS: HEMATOCRIT 25.6 % (35.4-49); HEMOGLOBIN 8.7 GM/dL (11.7-16.9); MCH 30.7 pg (25.7-33.7); MCHC 34.1 g/dl (32.0-35.9); MEAN CELL VOLUME 90.3 fl (80-96); MEAN PLT VOLUME 9.8 fl (7.5-11.1); PLATELET COUNT 187 K/MM3 (134-434); RBC 2.83 M/mm3 (4.00-5.60); RDW 14.1 % (11.9-15.9); WHITE BLOOD COUNT 7.4 K/mm3 (4.0-10.0)
[2019-05-28] MEDS ORDERED: ATORVASTATIN CA 80 MG TABLET (FP) PO SCH (22:00)
[2019-05-28] MEDS: ATORVASTATIN CA 80 MG TABLET (FP) PO SCH (22:09)
[2019-05-28] MEDS: CHLORHEXIDINE GLUCONATE 4% CLEANSER FOR DECOLONIZATION TP SCH (22:10)
[2019-05-29] MEDS: PANTOPRAZOLE SODIUM 80 MG in SODIUM CHLORIDE 100 ML IVPB SCH ×3 (00:09→11:20)
[2019-05-29 06:48] LABS: HEMOGLOBIN 8.7 GM/dL (11.7-16.9); MCH 31.2 pg (25.7-33.7); MCHC 34.9 g/dl (32.0-35.9); MEAN CELL VOLUME 89.5 fl (80-96); MEAN PLT VOLUME 9.8 fl (7.5-11.1); PLATELET COUNT 198 K/MM3 (134-434); RBC 2.79 M/mm3 (4.00-5.60); RDW 13.8 % (11.9-15.9); WHITE BLOOD COUNT 6.3 K/mm3 (4.0-10.0)
[2019-05-29 06:53] LABS: BLOOD UREA NITROGEN 11.8 mg/dL (7-18); CALCIUM 7.8 mg/dL (8.5-10.1); CREATININE 0.8 mg/dL (0.55-1.3); PHOSPHOROUS 2.2 mg/dL (2.5-4.9); POTASSIUM 3.8 mmol/L (3.5-5.1)
[2019-05-29] MEDS: SODIUM CHLORIDE 1,000 ML IV SCH (08:22)
--- NOTE | 2019-05-29 09:05 | PN ---
Progress Note (short form) - Note Progress Note: Dr Mixon received signout from Dr Bond for GI follow up with patient. Patient is not a patient of Dr Mixon outpatient and last admission in 08/[address] Beavers. Spoke with Dr Mixon, ICU Resident Dr Wilburn and with Dr Beavers and patient will be seen by Hospitalist service.
--- NOTE | 2019-05-29 09:28 | PN ---
Teaching Attending Note Name of Resident: Cecilia Arana ATTENDING PHYSICIAN STATEMENT I saw and evaluated the patient. I reviewed the resident's note and discussed the case with the resident. I agree with the resident's findings and plan as documented. SUBJECTIVE: No fever or chills, denies abd pain , or N/V. he had a black BM this am . No dizziness or light headedness today . Walked to bathroom with no trouble OBJECTIVE: NAD , awake, alert, cooperative , pale conjunctivae and MM. MMM CV; RRR, 2/6 SM at base . Lungs: CTAB Abd: soft, nl BS , NT, ND Ext: No edema or erythema on upper or lower extremities Assessment/Plan: 89 y/o gentleman with h/o PUD, upper GI Bleed, CAD s/p CABG, GERD, HTN, who presented with melena x 3 days . He was found to be anemic. 1- GI bleed, likely upper. BP improved and HB improved after 1 unit of RBC. dizziness resolved. However, pt cont to have melena - cont IVF - monitor HB q 6 H - Dr. Pereira to determine on timing of EGD - cont PPI gtt - keep NPO - cont to hole all BP meds and lasix - cont to hold asa 2- Obstructive R ureteral stone with R hydronephrosis: - will get urology to evaluate 3- R renal lesion : solid vs . Cystic lesion. - obtain US of kidney 4- Incidental finding of fusiform dilation of the abd aorta of 2.4 cm - f/u as periodically as out pt 5- Acute blood loss anemia: - as above 6- H/o HTN: hold all HTN meds DVT px: SCDs Critical Care Total Critical Care Time (in minutes): 30 Critical Care Statement: The care of this patient involved high complexity decision making to prevent further life threatening deterioration of the patient 's condition and/or to evaluate & treat vital organ system(s) failure or risk of failure.
[2019-05-29] MEDS ORDERED: POTASSIUM PHOSPHATE 15 MM in SODIUM CHLORIDE 250 ML IVPB ONE (10:00)
[2019-05-29] MEDS: MUPIROCIN 2% TOPICAL OINTMENT FOR DECOLONIZATION NS SCH ×2 (10:19→21:47)
--- NOTE | 2019-05-29 10:22 | EKG ---
Test Reason : Blood Pressure : / mmHG Vent. Rate : 073 BPM Atrial Rate : 073 BPM P-R Int : 196 ms QRS Dur : 080 ms QT Int : 386 ms P-R-T Axes : 055 022 087 degrees QTc Int : 425 ms SINUS RHYTHM WITH OCCASIONAL PREMATURE VENTRICULAR COMPLEXES NONSPECIFIC T WAVE ABNORMALITY WHEN COMPARED WITH ECG OF 27-AUG-2018 19:49, PREMATURE VENTRICULAR COMPLEXES ARE NOW PRESENT T WAVE VARIATION Confirmed by RUDY WHITT, SD ([id number]) on 05/29/2019 10:21:37 AM Referred By: Confirmed By:SD GRANT MD
[2019-05-29] MEDS ORDERED: INSULIN (NOVOLOG) ASPART 100 UNITS/ML 10ML VIAL ONE (11:22)
--- NOTE | 2019-05-29 12:15 | PN ---
Teaching Attending Note Name of Resident: Hugo Kowalski ATTENDING PHYSICIAN STATEMENT I saw and evaluated the patient. I reviewed the resident's note and discussed the case with the resident. I agree with the resident's findings and plan as documented. SUBJECTIVE: Patient seen and examined in the ICU. Awake and alert. Having renal US being completed at the bedside. No CP or SOB. Denies abdominal pain. No occult bleeding noted overnight. Only required 1 unit of pRBCs transfusion. Intake & Output 05/27/19 05/28/19 05/28/19 05/29/19 00:59 00:59 23:59 23:59 Intake Total 1340 Output Total 600 Balance 740 Weight 163 lb 14.4 oz Last Vital Signs Temp Pulse Resp BP Pulse Ox 98 F 71 10 116/69 99 05/29/19 10:00 05/29/19 10:00 05/29/19 10:00 05/29/19 10:00 05/29/19 07:33 Active Medications Atorvastatin Calcium (Lipitor -) 80 mg PO HS [facility] Last Admin: 05/28/19 22:09 Dose: Not Given Chlorhexidine Gluconate (Hibiclens For Decolonization -) 1 applic TP HS [facility] Last Admin: 05/28/19 22:10 Dose: 1 applic Sodium Chloride (Normal Saline -) 1,000 mls @ 100 mls/hr IV ASDIR [facility] Last Admin: 05/28/19 23:45 Dose: 100 mls/hr Pantoprazole Sodium 80 mg/ (Sodium Chloride) 100 mls @ 10 mls/hr IVPB Q10H [facility] Last Admin: 05/29/19 01:47 Dose: Not Given Potassium Phosphate 15 mm/ (Sodium Chloride) 255 mls @ 62.5 mls/hr IVPB ONCE ONE Stop: 05/29/19 14:04 Mupirocin (Bactroban Ointment (For Decolonization) -) 1 applic NS BID [facility] Stop: 06/02/19 09:59 Last Admin: 05/28/19 22:10 Dose: 1 applic Constitutional: Yes: Well Nourished, No Distress, Calm Eyes: Yes: WNL, Conjunctiva Clear HENT: Yes: Atraumatic, Normocephalic Neck: Yes: Supple, Trachea Midline Cardiovascular: Yes: Regular Rate and Rhythm Respiratory: Yes: Regular, CTA Bilaterally Gastrointestinal: Yes: Normal Bowel Sounds, Soft ...Rectal Exam: Yes: Deferred Renal/: Yes: WNL Musculoskeletal: Yes: WNL Extremities: Yes: WNL Edema: No Peripheral Pulses WNL: Yes Integumentary: Yes: WNL Neurological: Yes: WNL, Alert, Oriented ...Motor Strength: WNL Psychiatric: Yes: WNL Labs: Laboratory Results - last 24 hr 05/28/19 05/28/19 05/29/19 13:00 19:13 05:08 WBC 7.6 7.4 6.3 RBC 2.77 L 2.83 L 2.79 L Hgb 8.8 L 8.7 L 8.7 L Hct 25.3 L 25.6 L 25.0 L MCV 91.7 90.3 89.5 MCH 31.7 30.7 31.2 MCHC 34.5 34.1 34.9 RDW 14.2 14.1 13.8 Plt Count 190 187 198 MPV 9.2 9.8 9.8 Sodium Potassium Chloride Carbon Dioxide Anion Gap BUN Creatinine Est GFR (CKD-EPI)AfAm Est GFR (CKD-EPI)NonAf Random Glucose Calcium Phosphorus Magnesium 05/29/19 05:58 WBC RBC Hgb Hct MCV MCH MCHC RDW Plt Count MPV Sodium 139 Potassium 3.8 Chloride 108 H Carbon Dioxide 26 Anion Gap 5 L BUN 11.8 Creatinine 0.8 Est GFR (CKD-EPI)AfAm 110.19 Est GFR (CKD-EPI)NonAf 95.07 Random Glucose 90 Calcium 7.8 L Phosphorus 2.2 L Magnesium 2.0 Problem List - Problems (1) Hypotension Code(s): I95.9 - HYPOTENSION, UNSPECIFIED (2) GI bleed Code(s): K92.2 - GASTROINTESTINAL HEMORRHAGE, UNSPECIFIED (3) Peptic ulcer Code(s): K27.9 - PEPTIC ULC, SITE UNSP, UNSP AC OR CHR, W/O HEMOR OR PERF Assessment/Plan Acute GI Bleed with symptomatic anemia History of duodenal ulcer CAD History of CABG on ASA HTN HLD Seizure DO Nephrolithiasis Hydronephrosis Fusiform dilation of the abdominal aorta: 2.4 cm For endoscopic evaluation Normal transfusion thresholds Serial CBC O2 as needed NPO PPI Hold ASA and anti-HTN meds for now IVF Mechanical VTE prophylaxis Will need outpatient follow up of the aortic aneurysm If remains stable, can monitor on the floor Dr Kadie
[2019-05-29 12:56] LABS: HEMATOCRIT 25.6 % (35.4-49); HEMOGLOBIN 8.6 GM/dL (11.7-16.9); MCH 30.6 pg (25.7-33.7); MCHC 33.6 g/dl (32.0-35.9); MEAN CELL VOLUME 91.3 fl (80-96); MEAN PLT VOLUME 9.5 fl (7.5-11.1); PLATELET COUNT 200 K/MM3 (134-434); RBC 2.81 M/mm3 (4.00-5.60); RDW 14.1 % (11.9-15.9); WHITE BLOOD COUNT 5.9 K/mm3 (4.0-10.0)
[2019-05-29] MEDS ORDERED: SODIUM CHLORIDE 1,000 ML IV SCH (14:30)
--- NOTE | 2019-05-29 15:24 | PN ---
Physical Exam: SUBJECTIVE: Patient seen and examined. No acute events overnight. Denies chest pain, SOB. Had 1 BM yesterday, no gross bleeding. OBJECTIVE: Vital Signs Period Temp Pulse Resp BP Sys/Easley Pulse Ox Last 24 Hr 97.8 F-98.4 F 66-79 10-21 91-116/58-80 99-100 GENERAL: The patient is awake, alert, and fully oriented, in no acute distress. LUNGS: Breath sounds equal, clear to auscultation bilaterally, no wheezes, no crackles, no accessory muscle use. HEART: Regular rate and rhythm, S1, S2 without murmur, rub or gallop. ABDOMEN: Soft, nontender, nondistended, normoactive bowel sounds, no guarding, no rebound, no hepatosplenomegaly, no masses. EXTREMITIES: warm, well-perfused, no edema. NEUROLOGICAL: AOx3. Normal speech Laboratory Results - last 24 hr 05/28/19 05/29/19 05/29/19 19:13 05:08 05:58 WBC 7.4 6.3 RBC 2.83 L 2.79 L Hgb 8.7 L 8.7 L Hct 25.6 L 25.0 L MCV 90.3 89.5 MCH 30.7 31.2 MCHC 34.1 34.9 RDW 14.1 13.8 Plt Count 187 198 MPV 9.8 9.8 Sodium 139 Potassium 3.8 Chloride 108 H Carbon Dioxide 26 Anion Gap 5 L BUN 11.8 Creatinine 0.8 Est GFR (CKD-EPI)AfAm 110.19 Est GFR (CKD-EPI)NonAf 95.07 Random Glucose 90 Calcium 7.8 L Phosphorus 2.2 L Magnesium 2.0 05/29/19 12:20 WBC 5.9 RBC 2.81 L Hgb 8.6 L Hct 25.6 L MCV 91.3 MCH 30.6 MCHC 33.6 RDW 14.1 Plt Count 200 MPV 9.5 Sodium Potassium Chloride Carbon Dioxide Anion Gap BUN Creatinine Est GFR (CKD-EPI)AfAm Est GFR (CKD-EPI)NonAf Random Glucose Calcium Phosphorus Magnesium Active Medications Generic Name Dose Route Start Last Admin Trade Name Freq PRN Reason Stop Dose Admin Amoxicillin 1,000 mg 05/29/19 22:00 Amoxicillin - PO BID CLYDE Atorvastatin Calcium 80 mg 05/28/19 22:00 05/28/19 22:09 Lipitor - PO Not Given HS CLYDE Chlorhexidine Gluconate 1 applic 05/28/19 22:00 05/28/19 22:10 Hibiclens For Decolonization - TP 1 applic HS CLYDE Administration Clarithromycin 500 mg 05/29/19 22:00 Biaxin - PO BID CLYDE Sodium Chloride 1,000 mls @ 100 mls/hr 05/28/19 08:41 05/29/19 08:22 Normal Saline - IV 100 mls/hr ASDIR CLYDE Administration Sodium Chloride 1,000 mls @ 100 mls/hr 05/29/19 14:30 05/29/19 15:21 Normal Saline - IV Not Given ASDIR CLYDE Mupirocin 1 applic 05/28/19 10:00 05/29/19 10:19 Bactroban Ointment (For Decolonization) - NS 06/02/19 09:59 1 applic BID CLYDE Administration Pantoprazole Sodium 40 mg 05/29/19 22:00 Protonix - PO BID CLYDE ASSESSMENT/PLAN: Sonido Emerson is a 89yM w PMHx peptic ulcer disease, GI bleeding, CAD s/p CABG , GERD, HTN, seizure presented with hematochezia and weakness. Cards - CT A/P 05/27 showed 2.4cm fusiform dilation of distal AB aorta - continue Lipitor - holding ASA and HTN meds d/t hypotension - DVT ppx Pulm - breathing RA, O2 sat wnl Heme - anemia, no active bleeding - stable Hgb 8.7 - given 1u pRBC in ED for Hgb drop - serial H&H GI - hematochezia, hx PUD, GI bleeding - EGD 05/29 showed non bleeding ulcer - started Na diet - NPO at midnight for possible procedure tomorrow - GI ppx - appreciate GI (Dr Bojorquez) recs - BUN/Cr wnl - CT A/P 05/27 showed obstructing stone at distal R UPJ w hydronephrosis - renal US 05/29 showed R renal cyst, nonobstructing stone, mild hydronephrosis - possible renal stent procedure tomorrow - stopped fluids - I/O Endo - no active issues ID - afebrile - started amoxicillin and clarithromycin 05/29 per GI for H. pylori concern FEN - no fluids - hyperCl, hypoPhos - repleted - Na diet PPX - SCDs - protonix Dispo - transfer to tele Visit type - Emergency Visit Emergency Visit: Yes ED Registration Date: 05/27/19 Care time: The patient presented to the Emergency Department on the above date and was hospitalized for further evaluation of their emergent condition. - New Patient This patient is new to me today: Yes Date on this admission: 05/29/19 - Critical Care Critical Care patient: Yes Total Critical Care Time (in minutes): 35 Critical Care Statement: The care of this patient involved high complexity decision making to prevent further life threatening deterioration of the patient 's condition and/or to evaluate & treat vital organ system(s) failure or risk of failure. ATTENDING PHYSICIAN STATEMENT I saw and evaluated the patient. I reviewed the resident's note and discussed the case with the resident. I agree with the resident's findings and plan as documented. SUBJECTIVE: OBJECTIVE: ASSESSMENT AND PLAN:
--- NOTE | 2019-05-29 17:05 | PN ---
Physical Exam: SUBJECTIVE: Patient seen and examined 63 y/o M, pmh of CAD s/p CABG [address] [facility], prior transfusions for GI bleed, PUD, HTN, HLD, seizure hx, presents c/o of blood in the stool is being treated for peptic ulcer disease. Pt is currently, asymptomatic, afebrile and has no c/o. Pt reports one episode of dark stool today morning but otherwise as no further issues. Pt denies f/c/n/v/d, sob, chest pain, abdominal pain, abdominal distention, dyspepsia. OBJECTIVE: Vital Signs Last Vital Signs Temp Pulse Resp BP Pulse Ox 97.8 F 68 12 103/69 99 05/29/19 14:00 05/29/19 14:00 05/29/19 14:00 05/29/19 14:00 05/29/19 13:45 GENERAL: Awake, alert, and fully oriented, in no acute distress. EYES: Pupils equal, round and reactive to light, extraocular movements intact, EARS, NOSE, THROAT: Moist mucous membranes. NECK: Normal range of motion, supple LUNGS: Breath sounds equal, clear to auscultation bilaterally. No wheezes, and no crackles. HEART: Regular rate and rhythm, normal S1 and S2 without murmur, rub or gallop. ABDOMEN: Soft, Tender to deep palpation in the Left lateral abdominal wall and LUQ, not distended, normoactive bowel sounds, no guarding, no rebound, no masses. UPPER EXTREMITIES: 2+ pulses, warm, well-perfused. No cyanosis. LOWER EXTREMITIES: 2+ pulses, warm, well-perfused. PSYCHIATRIC: Cooperative. Good eye contact. Appropriate mood and affect. Laboratory Results - last 24 hr CBC,CMP WBC 5.9 K/mm3 (4.0-10.0) 05/29/19 12:20 RBC 2.81 M/mm3 (4.00-5.60) L 05/29/19 12:20 Hgb 8.6 GM/dL (11.7-16.9) L 05/29/19 12:20 Hct 25.6 % (35.4-49) L 05/29/19 12:20 MCV 91.3 fl (80-96) 05/29/19 12:20 MCH 30.6 pg (25.7-33.7) 05/29/19 12:20 MCHC 33.6 g/dl (32.0-35.9) 05/29/19 12:20 RDW 14.1 % (11.9-15.9) 05/29/19 12:20 Plt Count 200 K/MM3 (134-434) 05/29/19 12:20 MPV 9.5 fl (7.5-11.1) 05/29/19 12:20 Absolute Neuts (auto) 6.3 K/mm3 (1.5-8.0) 05/28/19 07:20 Neutrophils % 74.8 % (42.8-82.8) 05/28/19 07:20 Lymphocytes % 18.3 % (8-40) D 05/28/19 07:20 Monocytes % 5.8 % (3.8-10.2) 05/28/19 07:20 Eosinophils % 0.5 % (0-4.5) 05/28/19 07:20 Basophils % 0.6 % (0-2.0) 05/28/19 07:20 Nucleated RBC % 0 % (0-0) 05/28/19 07:20 Sodium 139 mmol/L (136-145) 05/29/19 05:58 Potassium 3.8 mmol/L (3.5-5.1) 05/29/19 05:58 Chloride 108 mmol/L (98-107) H 05/29/19 05:58 Carbon Dioxide 26 mmol/L (21-32) 05/29/19 05:58 Anion Gap 5 MMOL/L (8-16) L 05/29/19 05:58 BUN 11.8 mg/dL (7-18) 05/29/19 05:58 Creatinine 0.8 mg/dL (0.55-1.3) 05/29/19 05:58 Est GFR (CKD-EPI)AfAm 110.19 05/29/19 05:58 Est GFR (CKD-EPI)NonAf 95.07 05/29/19 05:58 Random Glucose 90 mg/dL (74-106) 05/29/19 05:58 Calcium 7.8 mg/dL (8.5-10.1) L 05/29/19 05:58 Phosphorus 2.2 mg/dL (2.5-4.9) L 05/29/19 05:58 Magnesium 2.0 mg/dL (1.8-2.4) 05/29/19 05:58 Iron 73 ug/dL (50-175) 05/28/19 07:20 TIBC 300 ug/dL (250-450) 05/28/19 07:20 Iron Saturation 24 % (17.5-39) 05/28/19 07:20 Unsaturated IBC 227 ug/dL (200-275) 05/28/19 07:20 Ferritin 35.3 ng/ml (8-388) 05/28/19 07:20 Total Bilirubin 0.3 mg/dL (0.2-1) 05/28/19 07:20 AST 13 U/L (15-37) L 05/28/19 07:20 ALT 23 U/L (13-61) 05/28/19 07:20 Alkaline Phosphatase 69 U/L (45-117) 05/28/19 07:20 Troponin I 0.02 ng/ml (0.00-0.05) 05/27/19 18:59 Total Protein 5.7 g/dl (6.4-8.2) L 05/28/19 07:20 Albumin 3.2 g/dl (3.4-5.0) L 05/28/19 07:20 Vitamin B12 440 pg/ml (193-986) 05/28/19 07:20 Active Medications Current Medications Amoxicillin (Amoxicillin -) 1,000 mg PO BID [facility] Atorvastatin Calcium (Lipitor -) 80 mg PO HS [facility] Last Admin: 05/28/19 22:09 Dose: Not Given Chlorhexidine Gluconate (Hibiclens For Decolonization -) 1 applic TP HS [facility] Last Admin: 05/28/19 22:10 Dose: 1 applic Clarithromycin (Biaxin -) 500 mg PO BID [facility] Mupirocin (Bactroban Ointment (For Decolonization) -) 1 applic NS BID [facility] Stop: 06/02/19 09:59 Last Admin: 05/29/19 10:19 Dose: 1 applic Pantoprazole Sodium (Protonix -) 40 mg PO BID [facility] Home Medications Medication Instructions Recorded Atorvastatin Ca [Lipitor] 80 mg PO HS 05/10/17 Metoprolol Succinate [Toprol XL -] 50 mg PO DAILY 05/10/17 Amlodipine Besylate [Norvasc -] 5 mg PO DAILY 08/27/18 Aspirin [ASA -] 81 mg PO DAILY 08/27/18 Furosemide [Lasix -] 20 mg PO DAILY 08/27/18 Microbiology 05/27/19 19:10 Urine - Urine Clean Catch Urine Culture - Final NO GROWTH OBTAINED ASSESSMENT/PLAN: 63 y/o M, pmh of CAD s/p CABG [address] [facility], prior transfusions for GI bleed, PUD, HTN, HLD, seizure hx, presents c/o of blood in the stool likely secondary to peptic ulcers due to pertinent hx of ulcers #Hematochezia 2/2 to PUD EGD done- non-bleeding ulcer seen cont IV protonix 6 pm CBC and CMP Q6H- f/u Monitor BGM every 6 hrs Monitor vital signs closely Transfer to Tele #Normocytic anemia 2/2 to GI bleed Drop in hemoglobin from 11 to 9 g/dL on this admission Previous visits were Hg of 14 Ferritin, iron studies, vitamin B12, red blood smear- unremarkable #Rt ureteral stone US- right renal cyst, 4mm nephrolithiasis, mild hydronephrosis- no evidence of obstruction #CAD s/p CABG Hold aspirin due to risk of worsening GI bleed #HTN Hold all bp meds- amlodipine, metoprolol succinate BP still low #HLD Continue high-dose Lipitor #Abdominal Aortic aneurysm CT a/p- atelectasis and scarring in lung bases, [id number] renal calculi at the right ureteropelvic junction, 2.4 cm fusiform aneurysm of the mid abdominal aorta Monitor for now #DVT ppx SCDs FEN monitor lytes sodium controlled diet Dispo: cont IV protonix, f/u 6 pm CBC, monitor BP closely Visit type - Emergency Visit Emergency Visit: Yes ED Registration Date: 05/27/19 Care time: The patient presented to the Emergency Department on the above date and was hospitalized for further evaluation of their emergent condition. - New Patient This patient is new to me today: Yes Date on this admission: 05/30/19 - Critical Care Critical Care patient: No - Discharge Referral Referred to [facility] Med P.C.: No ATTENDING PHYSICIAN STATEMENT I saw and evaluated the patient. I reviewed the resident's note and discussed the case with the resident. I agree with the resident's findings and plan as documented. SUBJECTIVE: OBJECTIVE: ASSESSMENT AND PLAN:
[2019-05-29 18:39] LABS: HEMATOCRIT 27.6 % (35.4-49); HEMOGLOBIN 9.2 GM/dL (11.7-16.9); MCH 30.3 pg (25.7-33.7); MCHC 33.4 g/dl (32.0-35.9); MEAN CELL VOLUME 90.9 fl (80-96); MEAN PLT VOLUME 9.7 fl (7.5-11.1); PLATELET COUNT 230 K/MM3 (134-434); RBC 3.03 M/mm3 (4.00-5.60); RDW 14.3 % (11.9-15.9); WHITE BLOOD COUNT 6.6 K/mm3 (4.0-10.0)
[2019-05-29] MEDS ORDERED: PT OWN MED DRAWER 7, Y5N ONE ×2 (18:46→19:46)
--- NOTE | 2019-05-29 19:23 | OP ---
DATE OF Consult 05/29/2019 I was asked to see this patient who was admitted with an upper GI bleed. During the course of the evaluation, the patient was found to have an approximately 1 x 1.3 cm stone in the proximal right ureter with mild right hydronephrosis. Review of the prior CT in August shows that the patient, in fact, had a stone of that size in the kidney, which appears to have dropped into the proximal ureter. In addition, there is a second small stone, approximately 4 mm in the mid portion of the right kidney. Patient's renal function has remained remarkably normal, and in questioning, the patient reports that he had some mild discomfort in the right flank about 2 weeks ago with some discomfort voiding, but that was very brief and he has not had any problems since that time. Patient also reports that approximately 30 years ago he did have some problems with kidney stones, but nothing since that time. PHYSICAL EXAMINATION: Abdomen: There is no flank pain elicited. Patient is sitting up comfortably, eating. Given the size of the stone and its proximal location, I would attempt to place a ureteral stent, and once the current situation with the GI bleed has settled down, plan to, in fact, consider either lithotripsy or ureteroscopy. MD BERONICA DE LA [id number] MTDD
[2019-05-29] MEDS: ATORVASTATIN CA 80 MG TABLET (FP) PO SCH (21:46)
[2019-05-29] MEDS: AMOXICILLIN 500 MG CAPSULE (FP) PO SCH (21:46)
[2019-05-29] MEDS: POLYETHYLENE GLYCOL 3350 119 GM BTL PO SCH (21:46)
[2019-05-29] MEDS: PANTOPRAZOLE 40 MG TABLET (FP) PO SCH (21:46)
[2019-05-29] MEDS: CHLORHEXIDINE GLUCONATE 4% CLEANSER FOR DECOLONIZATION TP SCH (21:47)
[2019-05-29] MEDS: CLARITHROMYCIN 500 MG TABLET (UD) PO SCH (21:47)
[2019-05-30 06:33] LABS: BASO % 0.6 % (0-2.0); EOS % 2.4 % (0-4.5); HEMATOCRIT 26.4 % (35.4-49); LYMPH % 19.8 % (8-40); MCH 30.8 pg (25.7-33.7); MEAN CELL VOLUME 90.4 fl (80-96); MEAN PLT VOLUME 9.4 fl (7.5-11.1); MONO % 7.4 % (3.8-10.2); NEUT % 69.8 % (42.8-82.8); PLATELET COUNT 218 K/MM3 (134-434); RBC 2.92 M/mm3 (4.00-5.60); RDW 14.3 % (11.9-15.9); WHITE BLOOD COUNT 5.8 K/mm3 (4.0-10.0)
[2019-05-30 07:06] LABS: ALBUMIN 3.1 g/dl (3.4-5.0); BILIRUBIN,TOTAL 0.6 mg/dL (0.2-1); BLOOD UREA NITROGEN 12.6 mg/dL (7-18); CALCIUM 8.2 mg/dL (8.5-10.1); CREATININE 0.8 mg/dL (0.55-1.3); MAGNESIUM 2.3 mg/dL (1.8-2.4); POTASSIUM 3.8 mmol/L (3.5-5.1)
[2019-05-30] MEDS ORDERED: PT OWN MED DRAWER 7, Y5N ONE (10:24)
[2019-05-30] MEDS: AMOXICILLIN 500 MG CAPSULE (FP) PO SCH ×2 (10:26→21:30)
[2019-05-30] MEDS: CLARITHROMYCIN 500 MG TABLET (UD) PO SCH ×2 (10:26→21:30)
[2019-05-30] MEDS: PANTOPRAZOLE 40 MG TABLET (FP) PO SCH ×2 (10:26→21:30)
[2019-05-30] MEDS: POLYETHYLENE GLYCOL 3350 119 GM BTL PO SCH (10:26)
--- NOTE | 2019-05-30 12:47 | PN ---
Physical Exam: SUBJECTIVE: Patient seen and examined 63 y/o M, pmh of CAD s/p CABG 5 years ago at [facility], prior transfusions for GI bleed, PUD, HTN, HLD, seizure hx, presents c/o of blood in the stool is being treated for peptic ulcer disease. Pt asymptomatic, afebrile and has no c/o. Pt reports no bowel movement today, but did urinate. Otherwise has no further issues. Pt denies f/c/n/v/d, sob, chest pain, abdominal pain, abdominal distention, dyspepsia. OBJECTIVE: Vital Signs Last Vital Signs Temp Pulse Resp BP Pulse Ox 98.0 F 85 18 110/72 95 05/30/19 04:58 05/30/19 04:58 05/30/19 04:58 05/30/19 04:58 05/29/19 22:47 GENERAL: Awake, alert, and fully oriented, in no acute distress. EYES: Pupils equal, round and reactive to light, extraocular movements intact, EARS, NOSE, THROAT: Moist mucous membranes. NECK: Normal range of motion, supple LUNGS: Breath sounds equal, clear to auscultation bilaterally. No wheezes, and no crackles. HEART: Regular rate and rhythm, normal S1 and S2 without murmur, rub or gallop. ABDOMEN: Soft, mildly tender to deep palpation in the Left lateral abdominal wall and LUQ- improved from yesterday, not distended, normoactive bowel sounds, no guarding, no rebound, no masses. UPPER EXTREMITIES: 2+ pulses, warm, well-perfused. No cyanosis. LOWER EXTREMITIES: 2+ pulses, warm, well-perfused. PSYCHIATRIC: Cooperative. Good eye contact. Appropriate mood and affect. Laboratory Results - last 24 hr CBC,CMP WBC 5.8 K/mm3 (4.0-10.0) 05/30/19 05:54 RBC 2.92 M/mm3 (4.00-5.60) L 05/30/19 05:54 Hgb 9.0 GM/dL (11.7-16.9) L 05/30/19 05:54 Hct 26.4 % (35.4-49) L 05/30/19 05:54 MCV 90.4 fl (80-96) 05/30/19 05:54 MCH 30.8 pg (25.7-33.7) 05/30/19 05:54 MCHC 34.0 g/dl (32.0-35.9) 05/30/19 05:54 RDW 14.3 % (11.9-15.9) 05/30/19 05:54 Plt Count 218 K/MM3 (134-434) 05/30/19 05:54 MPV 9.4 fl (7.5-11.1) 05/30/19 05:54 Absolute Neuts (auto) 4.1 K/mm3 (1.5-8.0) 05/30/19 05:54 Neutrophils % 69.8 % (42.8-82.8) 05/30/19 05:54 Lymphocytes % 19.8 % (8-40) 05/30/19 05:54 Monocytes % 7.4 % (3.8-10.2) 05/30/19 05:54 Eosinophils % 2.4 % (0-4.5) D 05/30/19 05:54 Basophils % 0.6 % (0-2.0) 05/30/19 05:54 Nucleated RBC % 0 % (0-0) 05/30/19 05:54 Sodium 138 mmol/L (136-145) 05/30/19 05:54 Potassium 3.8 mmol/L (3.5-5.1) 05/30/19 05:54 Chloride 107 mmol/L (98-107) 05/30/19 05:54 Carbon Dioxide 27 mmol/L (21-32) 05/30/19 05:54 Anion Gap 5 MMOL/L (8-16) L 05/30/19 05:54 BUN 12.6 mg/dL (7-18) 05/30/19 05:54 Creatinine 0.8 mg/dL (0.55-1.3) 05/30/19 05:54 Est GFR (CKD-EPI)AfAm 110.19 05/30/19 05:54 Est GFR (CKD-EPI)NonAf 95.07 05/30/19 05:54 Random Glucose 97 mg/dL (74-106) 05/30/19 05:54 Calcium 8.2 mg/dL (8.5-10.1) L 05/30/19 05:54 Phosphorus 3.0 mg/dL (2.5-4.9) 05/30/19 05:54 Magnesium 2.3 mg/dL (1.8-2.4) 05/30/19 05:54 Iron 73 ug/dL (50-175) 05/28/19 07:20 TIBC 300 ug/dL (250-450) 05/28/19 07:20 Iron Saturation 24 % (17.5-39) 05/28/19 07:20 Unsaturated IBC 227 ug/dL (200-275) 05/28/19 07:20 Ferritin 35.3 ng/ml (8-388) 05/28/19 07:20 Total Bilirubin 0.6 mg/dL (0.2-1) 05/30/19 05:54 AST 26 U/L (15-37) 05/30/19 05:54 ALT 39 U/L (13-61) 05/30/19 05:54 Alkaline Phosphatase 76 U/L (45-117) 05/30/19 05:54 Troponin I 0.02 ng/ml (0.00-0.05) 05/27/19 18:59 Total Protein 6.0 g/dl (6.4-8.2) L 05/30/19 05:54 Albumin 3.1 g/dl (3.4-5.0) L 05/30/19 05:54 Vitamin B12 440 pg/ml (193-986) 05/28/19 07:20 Active Medications Current Medications Amoxicillin (Amoxicillin -) 1,000 mg PO BID [facility] Last Admin: 05/30/19 10:26 Dose: 1,000 mg Atorvastatin Calcium (Lipitor -) 80 mg PO [facility] Clarithromycin (Biaxin -) 500 mg PO BID [facility] Last Admin: 05/30/19 10:26 Dose: 500 mg Pantoprazole Sodium (Protonix -) 40 mg PO BID [facility] Last Admin: 05/30/19 10:26 Dose: 40 mg Polyethylene Glycol (Miralax (For Daily Use) -) 17 gm PO DAILY [facility] Last Admin: 05/30/19 10:26 Dose: 17 grams Home Medications Medication Instructions Recorded Atorvastatin Ca [Lipitor] 80 mg PO HS 05/10/17 Metoprolol Succinate [Toprol XL -] 50 mg PO DAILY 05/10/17 Amlodipine Besylate [Norvasc -] 5 mg PO DAILY 08/27/18 Aspirin [ASA -] 81 mg PO DAILY 08/27/18 Furosemide [Lasix -] 20 mg PO DAILY 08/27/18 ASSESSMENT/PLAN: 63 y/o M, pmh of CAD s/p CABG 5 years ago at [facility], prior transfusions for GI bleed, PUD, HTN, HLD, seizure hx, presents c/o of blood in the stool likely secondary to peptic ulcers due to pertinent hx of ulcers #Hematochezia 2/2 to PUD EGD done- non-bleeding ulcer seen cont IV protonix CMP Q6H Monitor BGM every 6 hrs As per GI -complete 14 day triple therapy course BID PPI with H. pylori treatment. Will need h. pylori stool antigen in 4 weeks completion of therapy to confirm eradication Hold ASA- 5 more days f/u pathology Confirm with GI H pylori infxn #Normocytic anemia 2/2 to GI bleed Ferritin, iron studies, vitamin B12,- unremarkable CBC- Hb 9/ Hct 26.4 #Rt ureteral stone US- right renal cyst, 4mm nephrolithiasis, mild hydronephrosis- no evidence of obstruction Urology consulted- Ureteral stent placement tomorrow at 4 pm, NPO tomorrow as per Dr. Kimble #CAD s/p CABG Hold aspirin due to risk of worsening GI bleed #HTN Hold all bp meds- amlodipine, metoprolol succinate BP still low #HLD Continue high-dose Lipitor #Abdominal Aortic aneurysm CT a/p- atelectasis and scarring in lung bases, [id number] renal calculi at the right ureteropelvic junction, 2.4 cm fusiform aneurysm of the mid abdominal aorta Monitor for now #DVT ppx SCDs FEN monitor lytes sodium controlled diet Dispo: cont IV protonix, monitor BP closely,ureteral stent placement tomorrow 4pm Visit type - Emergency Visit Emergency Visit: Yes ED Registration Date: 05/27/19 Care time: The patient presented to the Emergency Department on the above date and was hospitalized for further evaluation of their emergent condition. - New Patient This patient is new to me today: Yes Date on this admission: 05/31/19 - Critical Care Critical Care patient: No - Discharge Referral Referred to [facility] Med P.C.: No ATTENDING PHYSICIAN STATEMENT I saw and evaluated the patient. I reviewed the resident's note and discussed the case with the resident. I agree with the resident's findings and plan as documented. SUBJECTIVE: OBJECTIVE: ASSESSMENT AND PLAN:
--- NOTE | 2019-05-30 14:12 | PN.GI ---
GI Progress Note Subjective: No acute events No melena No abdominal pain - Objective Vital Signs: Vital Signs Temperature 98.0 F 05/30/19 04:58 Pulse Rate 92 H 05/30/19 10:00 Respiratory Rate 18 05/30/19 10:00 Blood Pressure 146/92 05/30/19 10:00 O2 Sat by Pulse Oximetry (%) 95 05/29/19 22:47 Constitutional: Calm Eyes: No: Sclera Icterus Cardiovascular: Yes: Regular Rate and Rhythm Respiratory: Yes: CTA Bilaterally Gastrointestinal Inspection: No: Distention ...Auscultate: Yes: Normoactive Bowel Sounds ...Palpate: Yes: Soft. No: Hepatomegaly, Splenomegaly, Tenderness ...Percussion: No: Tympanitic Edema: No (No LE edema) Neurological: Yes: Alert Labs: CBC, BMP 05/30/19 05:54 05/30/19 05:54 INR, PTT INR 1.03 (0.83-1.09) 05/27/19 18:59 Problem List - Problems (1) Peptic ulcer Assessment/Plan: Duodenal ulcer with flat pigmented spot No overt bleeding Continue Protonix 40mg PO daily Hold ASA 5 more days then resume Follow-up pathology results: If h. pylori + will need treatment Monitor for overt bleeding Code(s): K27.9 - PEPTIC ULC, SITE UNSP, UNSP AC OR CHR, W/O HEMOR OR PERF
--- NOTE | 2019-05-30 18:34 | PN ---
Teaching Attending Note Name of Resident: Rod Haider ATTENDING PHYSICIAN STATEMENT I saw and evaluated the patient. I reviewed the resident's note and discussed the case with the resident. I agree with the resident's findings and plan as documented. SUBJECTIVE: No abd pain, no fever or chills OBJECTIVE: NAD , awake, alert, cooperative , pale conjunctivae and MM. MMM CV; RRR, 2/6 SM at base . Lungs: CTAB Abd: soft, nl BS , NT, ND Ext: No edema or erythema on upper or lower extremities Assessment/Plan: 89 y/o gentleman with h/o PUD, upper GI Bleed, CAD s/p CABG, GERD, HTN, who presented with melena x 3 days . He was found to be anemic. 1- Upper GI bleed . No more bleeding . HB is stable - Dc IVF -EGD reprot reviewed. abnormal mucosa is thought to be due to H. Pylori and triple treatment was started. - pathology is still pending - cont to hold asa x 5 more days per GI 2- Obstructive R ureteral stone with R hydronephrosis: -for stent placement tomorrow . case was d/w uro by team 3- R renal cyst : Monitor as out pt 4- Incidental finding of fusiform dilation of the abd aorta of 2.4 cm - f/u as periodically as out pt - f/u with vascular 5- Acute blood loss anemia: - stable Hb now 6- H/o HTN: Hypotension resolved . resume norvasc, and if tolerated, can resume BB. 7- H/o HLP: hold statin while on H.Pylori treatment per gI DVT px: SCDs
[2019-05-30] MEDS ORDERED: ATORVASTATIN CA 80 MG TABLET (FP) PO SCH (22:00)
[2019-05-31 06:47] LABS: BASO % 0.6 % (0-2.0); EOS % 2.9 % (0-4.5); HEMATOCRIT 25.2 % (35.4-49); HEMOGLOBIN 8.7 GM/dL (11.7-16.9); LYMPH % 20.3 % (8-40); MCH 31.5 pg (25.7-33.7); MCHC 34.5 g/dl (32.0-35.9); MEAN CELL VOLUME 91.3 fl (80-96); MEAN PLT VOLUME 9.4 fl (7.5-11.1); MONO % 8.2 % (3.8-10.2); PLATELET COUNT 229 K/MM3 (134-434); RBC 2.76 M/mm3 (4.00-5.60); RDW 14.4 % (11.9-15.9); WHITE BLOOD COUNT 6.2 K/mm3 (4.0-10.0)
[2019-05-31 07:06] LABS: ALBUMIN 3.2 g/dl (3.4-5.0); BILIRUBIN,TOTAL 0.4 mg/dL (0.2-1); BLOOD UREA NITROGEN 11.6 mg/dL (7-18); CALCIUM 8.1 mg/dL (8.5-10.1); CREATININE 0.9 mg/dL (0.55-1.3); POTASSIUM 3.6 mmol/L (3.5-5.1); TOT PROT 6.1 g/dl (6.4-8.2)
--- NOTE | 2019-05-31 09:14 | PN ---
Teaching Attending Note Name of Resident: Rod Haider ATTENDING PHYSICIAN STATEMENT I saw and evaluated the patient. I reviewed the resident's note and discussed the case with the resident. I agree with the resident's findings and plan as documented. SUBJECTIVE: Patient is comfortable with no acute distress, continues to c/o having dark stool . no abdominal pain, no shortness of breath. Vital Signs Temperature 98.3 F 05/31/19 01:53 Pulse Rate 74 05/31/19 05:00 Respiratory Rate 20 05/31/19 05:00 Blood Pressure 116/76 05/31/19 05:00 O2 Sat by Pulse Oximetry (%) 97 05/30/19 21:00 GENERAL: The patient is awake, alert, and fully oriented, in no acute distress. HEAD: Normal with no signs of trauma. EYES: PERRL, extraocular movements intact, sclera anicteric, conjunctiva clear. ENT: Ears normal, oropharynx clear without exudates, moist mucous membranes. NECK: Trachea midline, full range of motion, supple. LUNGS: Breath sounds equal, clear to auscultation bilaterally, no wheezes, no crackles, no accessory muscle use. HEART: Regular rate and rhythm, S1, S2 positive, 2/6 SM at base . ABDOMEN: Soft, nontender, nondistended, normoactive bowel sounds, no guarding, no rebound, no hepatosplenomegaly, no masses. EXTREMITIES: 2+ pulses, warm, well-perfused, no edema. NEUROLOGICAL: Cranial nerves II through XII grossly intact. Normal speech, gait not observed. PSYCH: Normal mood, normal affect. SKIN: Warm, dry, normal turgor, no rashes or lesions noted WBC 6.2 K/mm3 (4.0-10.0) 05/31/19 06:20 RBC 2.76 M/mm3 (4.00-5.60) L 05/31/19 06:20 Hgb 8.7 GM/dL (11.7-16.9) L 05/31/19 06:20 Hct 25.2 % (35.4-49) L 05/31/19 06:20 MCV 91.3 fl (80-96) 05/31/19 06:20 MCHC 34.5 g/dl (32.0-35.9) 05/31/19 06:20 RDW 14.4 % (11.9-15.9) 05/31/19 06:20 Plt Count 229 K/MM3 (134-434) 05/31/19 06:20 MPV 9.4 fl (7.5-11.1) 05/31/19 06:20 CMP Sodium 139 mmol/L (136-145) 05/31/19 06:20 Potassium 3.6 mmol/L (3.5-5.1) 05/31/19 06:20 Chloride 107 mmol/L (98-107) 05/31/19 06:20 Carbon Dioxide 27 mmol/L (21-32) 05/31/19 06:20 Anion Gap 5 MMOL/L (8-16) L 05/31/19 06:20 BUN 11.6 mg/dL (7-18) 05/31/19 06:20 Creatinine 0.9 mg/dL (0.55-1.3) 05/31/19 06:20 Random Glucose 100 mg/dL (74-106) 05/31/19 06:20 Calcium 8.1 mg/dL (8.5-10.1) L 05/31/19 06:20 Total Bilirubin 0.4 mg/dL (0.2-1) 05/31/19 06:20 AST 24 U/L (15-37) 05/31/19 06:20 ALT 38 U/L (13-61) 05/31/19 06:20 Alkaline Phosphatase 82 U/L (45-117) 05/31/19 06:20 Total Protein 6.1 g/dl (6.4-8.2) L 05/31/19 06:20 Albumin 3.2 g/dl (3.4-5.0) L 05/31/19 06:20 CARDIAC ENZYMES Troponin I 0.02 ng/ml (0.00-0.05) 05/27/19 18:59 Current Medications Generic Name Dose Route Start Last Admin Trade Name Freq PRN Reason Stop Dose Admin Amlodipine Besylate 5 mg 05/31/19 10:00 Norvasc - PO DAILY [facility] Amoxicillin 1,000 mg 05/29/19 22:00 05/30/19 21:30 Amoxicillin - PO 1,000 mg BID [facility] Administration Clarithromycin 500 mg 05/29/19 22:00 05/30/19 21:30 Biaxin - PO 500 mg BID [facility]DE Administration Pantoprazole Sodium 40 mg 05/29/19 22:00 05/30/19 21:30 Protonix - PO 40 mg BID [facility]YDE Administration Polyethylene Glycol 17 gm 05/29/19 21:45 05/30/19 10:26 Miralax (For Daily Use) - PO 17 grams DAILY [facility]YDE Administration Home Medications Medication Instructions Recorded Atorvastatin Ca [Lipitor] 80 mg PO HS 05/10/17 Metoprolol Succinate [Toprol XL -] 50 mg PO DAILY 05/10/17 Amlodipine Besylate [Norvasc -] 5 mg PO DAILY 08/27/18 Aspirin [ASA -] 81 mg PO DAILY 08/27/18 Furosemide [Lasix -] 20 mg PO DAILY 08/27/18 Assessment/Plan: Patient is a 89yo male with PMhx of PUD, upper GI Bleed, CAD s/p CABG, GERD, HTN , who presented with melena x 3 days . He was found to be anemic. # Upper GI bleed, s/o EGD , No more bleeding . HB is stable, EGD reprot reviewed. abnormal mucosa is thought to be due to H. Pylori and triple treatment was started. pathology is still pending , cont to hold asa x 5 more days per GI # Obstructive R ureteral stone with R hydronephrosis: for stent placement today as per uro # R renal cyst : Monitor as out pt # Incidental finding of fusiform dilation of the abd aorta of 2.4 cm , further w /u as an outpatient # Acute blood loss anemia: stable Hb now , transfuse if below 7 # H/o HTN: Hypotension resolved . resume norvasc, and if tolerated, can resume BB. # H/o HLP: hold statin while on H.Pylori treatment per gI DVT px: SCDs
[2019-05-31] MEDS ORDERED: amLODIPine BESYLATE 5 MG TABLET (FP) PO SCH (10:00)
--- NOTE | 2019-05-31 10:27 | PN ---
Physical Exam: SUBJECTIVE: Patient seen and examined 63 y/o M, pmh of CAD s/p CABG 5 years ago at [facility], prior transfusions for GI bleed, PUD, HTN, HLD, seizure hx, presents c/o of blood in the stool is being treated for peptic ulcer disease. Pt asymptomatic, afebrile and has no c/o. Pt reports had two dark stools today and also urinated. Otherwise has no further issues. Pt denies f/c/n/v/d, sob, chest pain, abdominal pain, abdominal distention, dyspepsia. OBJECTIVE: Vital Signs Last Vital Signs Temp Pulse Resp BP Pulse Ox 98.3 F 74 20 116/76 97 05/31/19 01:53 05/31/19 05:00 05/31/19 05:00 05/31/19 05:00 05/30/19 21:00 GENERAL: Awake, alert, and fully oriented, in no acute distress. EYES: Pupils equal, round and reactive to light, extraocular movements intact, EARS, NOSE, THROAT: Moist mucous membranes. NECK: Normal range of motion, supple LUNGS: Breath sounds equal, clear to auscultation bilaterally. No wheezes, and no crackles. HEART: Regular rate and rhythm, normal S1 and S2 without murmur, rub or gallop. ABDOMEN: Soft, LUQ pain- improved from yesterday, not distended, normoactive bowel sounds, no guarding, no rebound, no masses. UPPER EXTREMITIES: 2+ pulses, warm, well-perfused. No cyanosis. LOWER EXTREMITIES: 2+ pulses, warm, well-perfused. PSYCHIATRIC: Cooperative. Good eye contact. Appropriate mood and affect. Laboratory Results - last 24 hr CBC,CMP WBC 6.2 K/mm3 (4.0-10.0) 05/31/19 06:20 RBC 2.76 M/mm3 (4.00-5.60) L 05/31/19 06:20 Hgb 8.7 GM/dL (11.7-16.9) L 05/31/19 06:20 Hct 25.2 % (35.4-49) L 05/31/19 06:20 MCV 91.3 fl (80-96) 05/31/19 06:20 MCH 31.5 pg (25.7-33.7) 05/31/19 06:20 MCHC 34.5 g/dl (32.0-35.9) 05/31/19 06:20 RDW 14.4 % (11.9-15.9) 05/31/19 06:20 Plt Count 229 K/MM3 (134-434) 05/31/19 06:20 MPV 9.4 fl (7.5-11.1) 05/31/19 06:20 Absolute Neuts (auto) 4.2 K/mm3 (1.5-8.0) 05/31/19 06:20 Neutrophils % 68.0 % (42.8-82.8) 05/31/19 06:20 Lymphocytes % 20.3 % (8-40) 05/31/19 06:20 Monocytes % 8.2 % (3.8-10.2) 05/31/19 06:20 Eosinophils % 2.9 % (0-4.5) 05/31/19 06:20 Basophils % 0.6 % (0-2.0) 05/31/19 06:20 Nucleated RBC % 0 % (0-0) 05/31/19 06:20 Sodium 139 mmol/L (136-145) 05/31/19 06:20 Potassium 3.6 mmol/L (3.5-5.1) 05/31/19 06:20 Chloride 107 mmol/L (98-107) 05/31/19 06:20 Carbon Dioxide 27 mmol/L (21-32) 05/31/19 06:20 Anion Gap 5 MMOL/L (8-16) L 05/31/19 06:20 BUN 11.6 mg/dL (7-18) 05/31/19 06:20 Creatinine 0.9 mg/dL (0.55-1.3) 05/31/19 06:20 Est GFR (CKD-EPI)AfAm 104.98 05/31/19 06:20 Est GFR (CKD-EPI)NonAf 90.58 05/31/19 06:20 Random Glucose 100 mg/dL (74-106) 05/31/19 06:20 Calcium 8.1 mg/dL (8.5-10.1) L 05/31/19 06:20 Phosphorus 3.0 mg/dL (2.5-4.9) 05/30/19 05:54 Magnesium 2.3 mg/dL (1.8-2.4) 05/30/19 05:54 Iron 73 ug/dL (50-175) 05/28/19 07:20 TIBC 300 ug/dL (250-450) 05/28/19 07:20 Iron Saturation 24 % (17.5-39) 05/28/19 07:20 Unsaturated IBC 227 ug/dL (200-275) 05/28/19 07:20 Ferritin 35.3 ng/ml (8-388) 05/28/19 07:20 Total Bilirubin 0.4 mg/dL (0.2-1) 05/31/19 06:20 AST 24 U/L (15-37) 05/31/19 06:20 ALT 38 U/L (13-61) 05/31/19 06:20 Alkaline Phosphatase 82 U/L (45-117) 05/31/19 06:20 Troponin I 0.02 ng/ml (0.00-0.05) 05/27/19 18:59 Total Protein 6.1 g/dl (6.4-8.2) L 05/31/19 06:20 Albumin 3.2 g/dl (3.4-5.0) L 05/31/19 06:20 Vitamin B12 440 pg/ml (193-986) 05/28/19 07:20 Active Medications Current Medications Amlodipine Besylate (Norvasc -) 5 mg PO DAILY [facility] Amoxicillin (Amoxicillin -) 1,000 mg PO BID [facility] Last Admin: 05/30/19 21:30 Dose: 1,000 mg Clarithromycin (Biaxin -) 500 mg PO BID [facility] Last Admin: 05/30/19 21:30 Dose: 500 mg Pantoprazole Sodium (Protonix -) 40 mg PO BID [facility] Last Admin: 05/30/19 21:30 Dose: 40 mg Polyethylene Glycol (Miralax (For Daily Use) -) 17 gm PO DAILY [facility] Last Admin: 05/30/19 10:26 Dose: 17 grams Home Medications Medication Instructions Recorded Atorvastatin Ca [Lipitor] 80 mg PO HS 05/10/17 Metoprolol Succinate [Toprol XL -] 50 mg PO DAILY 05/10/17 Amlodipine Besylate [Norvasc -] 5 mg PO DAILY 08/27/18 Aspirin [ASA -] 81 mg PO DAILY 08/27/18 Furosemide [Lasix -] 20 mg PO DAILY 08/27/18 Microbiology 05/27/19 19:10 Urine - Urine Clean Catch Urine Culture - Final NO GROWTH OBTAINED ASSESSMENT/PLAN: 63 y/o M, pmh of CAD s/p CABG 5 years ago at [facility], prior transfusions for GI bleed, PUD, HTN, HLD, seizure hx, presents c/o of blood in the stool likely secondary to peptic ulcers due to pertinent hx of ulcers #Hematochezia 2/2 to PUD cont IV protonix CMP Q6H As per GI -complete 14 day triple therapy course BID PPI with H. pylori treatment. Will need h. pylori stool antigen in 4 weeks completion of therapy to confirm eradication Hold ASA- 4 more days f/u pathology Confirm with GI H pylori infxn #Normocytic anemia 2/2 to GI bleed Ferritin, iron studies, vitamin B12,- unremarkable CBC- Hb 8.7/ Hct 25.2 #Rt ureteral stone US- right renal cyst, 4mm nephrolithiasis, mild hydronephrosis- no evidence of obstruction Urology consulted- Ureteral stent placement today at 4 pm, NPO till procedure Dr. Kimble #CAD s/p CABG Hold aspirin 4 more days due to risk of worsening GI bleed #HTN Hold all bp meds- amlodipine, metoprolol succinate #HLD Continue high-dose Lipitor #Abdominal Aortic aneurysm CT a/p- atelectasis and scarring in lung bases, [id number] renal calculi at the right ureteropelvic junction, 2.4 cm fusiform aneurysm of the mid abdominal aorta Monitor for now #DVT ppx SCDs FEN monitor lytes NPO till procedure Dispo: cont IV protonix, monitor BP closely, ureteral stent placement today Visit type - Emergency Visit Emergency Visit: Yes ED Registration Date: 05/27/19 Care time: The patient presented to the Emergency Department on the above date and was hospitalized for further evaluation of their emergent condition. - New Patient This patient is new to me today: Yes Date on this admission: 06/01/19 - Critical Care Critical Care patient: No - Discharge Referral Referred to [facility] Med P.C.: No ATTENDING PHYSICIAN STATEMENT I saw and evaluated the patient. I reviewed the resident's note and discussed the case with the resident. I agree with the resident's findings and plan as documented. SUBJECTIVE: OBJECTIVE: ASSESSMENT AND PLAN:
[2019-05-31] MEDS ORDERED: PT OWN MED DRAWER 7, Y5N ONE (10:47)
[2019-05-31] MEDS: AMOXICILLIN 500 MG CAPSULE (FP) PO SCH ×2 (10:55→21:33)
[2019-05-31] MEDS: PANTOPRAZOLE 40 MG TABLET (FP) PO SCH ×2 (10:56→21:34)
[2019-05-31] MEDS: CLARITHROMYCIN 500 MG TABLET (UD) PO SCH ×2 (10:56→21:34)
[2019-05-31] MEDS: POLYETHYLENE GLYCOL 3350 119 GM BTL PO SCH (10:57)
--- NOTE | 2019-05-31 12:07 | PN.GI ---
GI Progress Note Subjective: 2 episodes of black stool last 24 hours. No change in VS's, no lightheadedness or dizziness. - Objective Vital Signs: Vital Signs Temperature 98.3 F 05/31/19 01:53 Pulse Rate 74 05/31/19 05:00 Respiratory Rate 20 05/31/19 05:00 Blood Pressure 116/76 05/31/19 05:00 O2 Sat by Pulse Oximetry (%) 97 05/30/19 21:00 Constitutional: No Distress, Obese Cardiovascular: Yes: Regular Rate and Rhythm, S1, S2 Respiratory: Yes: Regular, CTA Bilaterally ...Auscultate: Yes: Normoactive Bowel Sounds ...Palpate: Yes: Soft. No: Hepatomegaly, Mass, Tenderness Labs: CBC, BMP 05/31/19 06:20 05/31/19 06:20 INR, PTT INR 1.03 (0.83-1.09) 05/27/19 18:59 Assessment/Plan Despite 2 black stools, with VS stable and no tachycardia or hypotension, doubt active GI bleed. Would continue to follow CBC, VS's, GI output. Continue PPI. H pylori therapy if biopsy positive.
[2019-05-31] MEDS ORDERED: LIDOCAINE HCL/PF 2% SDV 5ML VIAL ONE (16:05)
[2019-05-31] MEDS ORDERED: PROPOFOL 20 ML ONE (16:06)
--- NOTE | 2019-05-31 17:34 | OP ---
DATE OF OPERATION: 05/31/2019 PREOPERATIVE DIAGNOSIS: Right ureteral calculus. POSTOPERATIVE DIAGNOSIS: Right ureteral calculus. PROCEDURE: Cystoscopy with placement of right ureteral stent. ATTENDING SURGEON: Moody Kimble MD ANESTHESIA: General. DESCRIPTION OF PROCEDURE: Patient brought into the operating room. Timeout was performed. Patient was then carefully placed in lithotomy, prepped and draped in the usual sterile fashion. A 23-Faroese cystoscope was passed under vision. Patient's prostatic urethra was noted to be approximately 4 cm in length with an elevated bladder neck as well as moderate enlargement of the lateral lobes. The bladder itself appeared unremarkable with no evidence of any tumors. Patient's right orifice was visualized, and a Sensor wire placed in through an open-ended catheter. It was advanced into the right orifice. The open-ended catheter was advanced into the right ureter and a retrograde performed revealing the suggestion of an obstructing calculus just distal to the right UPJ. The Sensor wire was then reintroduced and advanced under fluoroscopy into the right renal pelvis. The open-ended catheter was removed, and a 6-Faroese 26-cm in length double pigtail catheter was then advanced over the Sensor wire, positioned with the proximal curl in the pelvis, and as the wire was removed, the distal curl was noted to be present in the bladder. There were no complications. Patient tolerated the procedure well and was awake at the completion of the procedure. Plans were for the patient to have a KUB in the next day or so, and if the stone is apparent on KUB, will plan to do lithotripsy. Otherwise, patient will need to have ureteroscopy. MD BERONICA DE LA [id number]
--- NOTE | 2019-05-31 17:48 | PATH ---
Surgical Pathology Report Patient Name: ALIN VALENTIN [facility]. Rec. #: [id number] /Age/Gender: 1955 (Age: 63) / M Account: [id number] Location: 4 W TELEMETRY U Taken: 05/29/2019 Received: 05/30/2019 Reported: 05/31/2019 Physicians: Charlene Guzman MD Specimen(s) Received DUODENAL BULB ULCER Clinical History GI bleed Postoperative diagnosis: Duodenal bulb ulcer, untreated H. Pylori Final Diagnosis DUODENAL BULB ULCER, BIOPSY: DUODENAL MUCOSA WITH MARKED ACUTE AND CHRONIC DUODENITIS. Electronically Signed Cecilia Brunner M.D. Gross Description Received in formalin, labeled "biopsy duodenal bulb ulcer" are 2 dodge, irregular portions of soft tissue measuring 0.3 and 0.4 cm. in greatest dimension. The specimens are submitted in toto in one cassette. 05/30/201905/30/2019
[2019-06-01 07:39] LABS: BASO % 0.7 % (0-2.0); EOS % 2.2 % (0-4.5); HEMATOCRIT 26.1 % (35.4-49); MCH 31.3 pg (25.7-33.7); MCHC 34.5 g/dl (32.0-35.9); MEAN CELL VOLUME 90.8 fl (80-96); MEAN PLT VOLUME 9.5 fl (7.5-11.1); MONO % 6.7 % (3.8-10.2); NEUT % 73.4 % (42.8-82.8); PLATELET COUNT 252 K/MM3 (134-434); RBC 2.87 M/mm3 (4.00-5.60); RDW 14.7 % (11.9-15.9); WHITE BLOOD COUNT 6.7 K/mm3 (4.0-10.0)
[2019-06-01 08:13] LABS: ALBUMIN 3.2 g/dl (3.4-5.0); BILIRUBIN,TOTAL 0.5 mg/dL (0.2-1); BLOOD UREA NITROGEN 9.9 mg/dL (7-18); CALCIUM 8.4 mg/dL (8.5-10.1); CREATININE 0.9 mg/dL (0.55-1.3)
[2019-06-01] MEDS ORDERED: PT OWN MED DRAWER 7, Y5N ONE (09:10)
--- NOTE | 2019-06-01 09:30 | PN ---
Teaching Attending Note Name of Resident: Rod Haider ATTENDING PHYSICIAN STATEMENT I saw and evaluated the patient. I reviewed the resident's note and discussed the case with the resident. I agree with the resident's findings and plan as documented. SUBJECTIVE: Patient is comfortable with no acute distress. Vital Signs Temperature 98.8 F 06/01/19 08:27 Pulse Rate 87 06/01/19 08:27 Respiratory Rate 18 06/01/19 08:27 Blood Pressure 139/83 06/01/19 08:27 O2 Sat by Pulse Oximetry (%) 98 05/31/19 21:00 GENERAL: The patient is awake, alert, and fully oriented, in no acute distress. HEAD: Normal with no signs of trauma. EYES: PERRL, extraocular movements intact, sclera anicteric, conjunctiva clear. ENT: Ears normal, oropharynx clear without exudates, moist mucous membranes. NECK: Trachea midline, full range of motion, supple. LUNGS: Breath sounds equal, clear to auscultation bilaterally, no wheezes, no crackles, no accessory muscle use. HEART: Regular rate and rhythm, S1, S2 positive, 2/6 SM at base . ABDOMEN: Soft, nontender, nondistended, normoactive bowel sounds, no guarding, no rebound, no hepatosplenomegaly, no masses. EXTREMITIES: 2+ pulses, warm, well-perfused, no edema. NEUROLOGICAL: Cranial nerves II through XII grossly intact. Normal speech. PSYCH: Normal mood, normal affect. SKIN: Warm, dry, normal turgor, no rashes or lesions noted CBCD WBC 6.7 K/mm3 (4.0-10.0) 06/01/19 07:03 RBC 2.87 M/mm3 (4.00-5.60) L 06/01/19 07:03 Hgb 9.0 GM/dL (11.7-16.9) L 06/01/19 07:03 Hct 26.1 % (35.4-49) L 06/01/19 07:03 MCV 90.8 fl (80-96) 06/01/19 07:03 MCHC 34.5 g/dl (32.0-35.9) 06/01/19 07:03 RDW 14.7 % (11.9-15.9) 06/01/19 07:03 Plt Count 252 K/MM3 (134-434) 06/01/19 07:03 MPV 9.5 fl (7.5-11.1) 06/01/19 07:03 CMP Sodium 137 mmol/L (136-145) 06/01/19 07:03 Potassium 4.0 mmol/L (3.5-5.1) 06/01/19 07:03 Chloride 106 mmol/L (98-107) 06/01/19 07:03 Carbon Dioxide 27 mmol/L (21-32) 06/01/19 07:03 Anion Gap 4 MMOL/L (8-16) L 06/01/19 07:03 BUN 9.9 mg/dL (7-18) 06/01/19 07:03 Creatinine 0.9 mg/dL (0.55-1.3) 06/01/19 07:03 Random Glucose 96 mg/dL (74-106) 06/01/19 07:03 Calcium 8.4 mg/dL (8.5-10.1) L 06/01/19 07:03 Total Bilirubin 0.5 mg/dL (0.2-1) 06/01/19 07:03 AST 23 U/L (15-37) 06/01/19 07:03 ALT 40 U/L (13-61) 06/01/19 07:03 Alkaline Phosphatase 83 U/L (45-117) 06/01/19 07:03 Total Protein 6.0 g/dl (6.4-8.2) L 06/01/19 07:03 Albumin 3.2 g/dl (3.4-5.0) L 06/01/19 07:03 CARDIAC ENZYMES Troponin I 0.02 ng/ml (0.00-0.05) 05/27/19 18:59 Current Medications Generic Name Dose Route Start Last Admin Trade Name Freq PRN Reason Stop Dose Admin Amoxicillin 1,000 mg 05/31/19 22:00 05/31/19 21:33 Amoxicillin - PO 1,000 mg BID [facility] Administration Clarithromycin 500 mg 05/31/19 22:00 05/31/19 21:34 Biaxin - PO 500 mg BID [facility] Administration Lisinopril 5 mg 06/01/19 10:00 Prinivil PO DAILY [facility] Pantoprazole Sodium 40 mg 05/31/19 22:00 05/31/19 21:34 Protonix - PO 40 mg BID [facility] Administration Polyethylene Glycol 17 gm 06/01/19 10:00 Miralax (For Daily Use) - PO DAILY [facility] Home Medications Medication Instructions Recorded Atorvastatin Ca [Lipitor] 80 mg PO HS 05/10/17 Metoprolol Succinate [Toprol XL -] 50 mg PO DAILY 05/10/17 Amlodipine Besylate [Norvasc -] 5 mg PO DAILY 08/27/18 Aspirin [ASA -] 81 mg PO DAILY 08/27/18 Furosemide [Lasix -] 20 mg PO DAILY 08/27/18 Assessment/Plan: Patient is a 89yo male with PMhx of PUD, upper GI Bleed, CAD s/p CABG, GERD, HTN , who presented with melena x 3 days . He was found to be anemic. # Upper GI bleed, s/o EGD , No more bleeding . HB is stable, EGD report reviewed. abnormal mucosa was found in the gastric body and gastric antrum. The mucosa was nodular , likely due to untreated H.Pylori. pathology is still pending , cont to hold asa x 5 more days per GI, single ulcer was found in the duodenal bulb with flat pigmented spot. small hiatal hernia. recommendations: await for bx, avoid Nsaids, treat h.pylori with triple antibiotics: amoxiccilin 1gm bid, clarithromycin 500mg bid, PPI 40mg bidx 14d, continue PPI once daily afterward. Final diagnosis of duodenal bulb ulcer Bx: duodenal mucosa with marked acute and chronic duodenitis. as per GI to continue for 14 days and to follow up with GI clinic. # Obstructive R ureteral stone with R hydronephrosis: s/p stent placement , plan to remove the stent in 2 weeks on Wednesday with Lithotrispy. with dr Lamin GONZALEZ and insurance case manager involved to schedule an appointment # R renal cyst : Monitor as out pt # Incidental finding of fusiform dilation of the abd aorta of 2.4 cm , further w /u as an outpatient # Acute blood loss anemia: stable Hb now , transfuse if below 7 # H/o HTN: Hypotension resolved . resume norvasc, and if tolerated, can resume BB. # H/o HLP: hold statin while on H.Pylori treatment per gI DVT px: SCDs
[2019-06-01] MEDS ORDERED: amLODIPine BESYLATE 5 MG TABLET (FP) PO SCH (10:00)
[2019-06-01] MEDS: LISINOPRIL 5 MG TABLET (FP) PO SCH (11:20)
[2019-06-01] MEDS: AMOXICILLIN 500 MG CAPSULE (FP) PO SCH ×2 (11:20→21:12)
[2019-06-01] MEDS: POLYETHYLENE GLYCOL 3350 119 GM BTL PO SCH (11:21)
[2019-06-01] MEDS: CLARITHROMYCIN 500 MG TABLET (UD) PO SCH ×2 (11:21→21:12)
[2019-06-01] MEDS: PANTOPRAZOLE 40 MG TABLET (FP) PO SCH ×2 (11:22→21:12)
--- NOTE | 2019-06-01 15:21 | PN.GI ---
GI Progress Note Subjective: No acute events No bleeding - Objective Vital Signs: Vital Signs Temperature 98.1 F 06/01/19 14:00 Pulse Rate 77 06/01/19 14:00 Respiratory Rate 20 06/01/19 14:00 Blood Pressure 123/7 L 06/01/19 14:00 O2 Sat by Pulse Oximetry (%) 98 06/01/19 10:00 Constitutional: Calm Eyes: No: Sclera Icterus Cardiovascular: No: Regular Rate and Rhythm, Murmur Respiratory: Yes: CTA Bilaterally Gastrointestinal Inspection: No: Distention ...Auscultate: No: Normoactive Bowel Sounds ...Palpate: Yes: Soft. No: Hepatomegaly, Splenomegaly, Tenderness ...Percussion: No: Tympanitic Edema: No (No LE edema) Neurological: Yes: Alert Labs: CBC, BMP 06/01/19 07:03 06/01/19 07:03 INR, PTT INR 1.03 (0.83-1.09) 05/27/19 18:59 Problem List - Problems (1) Peptic ulcer Assessment/Plan: Stable hemodynamics / H/H Continue amoxicillin, clarithromycin and BID PPI therapy for total of 14 days including the days on therapy while hospitalized Stopped statin while he is on therapy Added iron and vitamin C therapy to regimen Outpatient follow-up. Can dicuss colonoscopy at that time and arrange h. pylori stool antigen testing to confirm eradication. Resume ASA 81mg daily if needed Code(s): K27.9 - PEPTIC ULC, SITE UNSP, UNSP AC OR CHR, W/O HEMOR OR PERF
[2019-06-01] MEDS: FERROUS SO4 325 MG TABLET (FP) PO SCH (16:06)
[2019-06-01] MEDS: ASCORBIC ACID 500 MG TABLET (FP) PO SCH (16:06)
--- NOTE | 2019-06-01 17:05 | PN ---
Physical Exam: SUBJECTIVE: Patient seen and examined 63 y/o M, pmh of CAD s/p CABG 5 years ago at [facility], prior transfusions for GI bleed, PUD, HTN, HLD, seizure hx, presents c/o of blood in the stool is being treated for peptic ulcer disease. Pt asymptomatic, afebrile and has no c/o. Pt reports had normal brown stools today and also urinated. Otherwise has no further issues. Pt denies f/c/n/v/d, sob, chest pain, abdominal pain, abdominal distention, dyspepsia. OBJECTIVE: Vital Signs Last Vital Signs Temp Pulse Resp BP Pulse Ox 98.1 F 77 20 123/7 L 98 06/01/19 14:00 06/01/19 14:00 06/01/19 14:00 06/01/19 14:00 06/01/19 10:00 GENERAL: Awake, alert, and fully oriented, in no acute distress. EYES: Pupils equal, round and reactive to light, extraocular movements intact, EARS, NOSE, THROAT: Moist mucous membranes. NECK: Normal range of motion, supple LUNGS: Breath sounds equal, clear to auscultation bilaterally. No wheezes, and no crackles. HEART: Regular rate and rhythm, normal S1 and S2 without murmur, rub or gallop. ABDOMEN: Soft, LUQ pain- improved from yesterday, not distended, normoactive bowel sounds, no guarding, no rebound, no masses. UPPER EXTREMITIES: 2+ pulses, warm, well-perfused. No cyanosis. LOWER EXTREMITIES: 2+ pulses, warm, well-perfused. PSYCHIATRIC: Cooperative. Good eye contact. Appropriate mood and affect. Laboratory Results - last 24 hr CBC,CMP WBC 6.7 K/mm3 (4.0-10.0) 06/01/19 07:03 RBC 2.87 M/mm3 (4.00-5.60) L 06/01/19 07:03 Hgb 9.0 GM/dL (11.7-16.9) L 06/01/19 07:03 Hct 26.1 % (35.4-49) L 06/01/19 07:03 MCV 90.8 fl (80-96) 06/01/19 07:03 MCH 31.3 pg (25.7-33.7) 06/01/19 07:03 MCHC 34.5 g/dl (32.0-35.9) 06/01/19 07:03 RDW 14.7 % (11.9-15.9) 06/01/19 07:03 Plt Count 252 K/MM3 (134-434) 06/01/19 07:03 MPV 9.5 fl (7.5-11.1) 06/01/19 07:03 Absolute Neuts (auto) 4.9 K/mm3 (1.5-8.0) 06/01/19 07:03 Neutrophils % 73.4 % (42.8-82.8) 06/01/19 07:03 Lymphocytes % 17.0 % (8-40) 06/01/19 07:03 Monocytes % 6.7 % (3.8-10.2) 06/01/19 07:03 Eosinophils % 2.2 % (0-4.5) 06/01/19 07:03 Basophils % 0.7 % (0-2.0) 06/01/19 07:03 Nucleated RBC % 0 % (0-0) 06/01/19 07:03 Sodium 137 mmol/L (136-145) 06/01/19 07:03 Potassium 4.0 mmol/L (3.5-5.1) 06/01/19 07:03 Chloride 106 mmol/L (98-107) 06/01/19 07:03 Carbon Dioxide 27 mmol/L (21-32) 06/01/19 07:03 Anion Gap 4 MMOL/L (8-16) L 06/01/19 07:03 BUN 9.9 mg/dL (7-18) 06/01/19 07:03 Creatinine 0.9 mg/dL (0.55-1.3) 06/01/19 07:03 Est GFR (CKD-EPI)AfAm 104.98 06/01/19 07:03 Est GFR (CKD-EPI)NonAf 90.58 06/01/19 07:03 Random Glucose 96 mg/dL (74-106) 06/01/19 07:03 Calcium 8.4 mg/dL (8.5-10.1) L 06/01/19 07:03 Phosphorus 3.0 mg/dL (2.5-4.9) 05/30/19 05:54 Magnesium 2.3 mg/dL (1.8-2.4) 05/30/19 05:54 Iron 73 ug/dL (50-175) 05/28/19 07:20 TIBC 300 ug/dL (250-450) 05/28/19 07:20 Iron Saturation 24 % (17.5-39) 05/28/19 07:20 Unsaturated IBC 227 ug/dL (200-275) 05/28/19 07:20 Ferritin 35.3 ng/ml (8-388) 05/28/19 07:20 Total Bilirubin 0.5 mg/dL (0.2-1) 06/01/19 07:03 AST 23 U/L (15-37) 06/01/19 07:03 ALT 40 U/L (13-61) 06/01/19 07:03 Alkaline Phosphatase 83 U/L (45-117) 06/01/19 07:03 Troponin I 0.02 ng/ml (0.00-0.05) 05/27/19 18:59 Total Protein 6.0 g/dl (6.4-8.2) L 06/01/19 07:03 Albumin 3.2 g/dl (3.4-5.0) L 06/01/19 07:03 Vitamin B12 440 pg/ml (193-986) 05/28/19 07:20 Active Medications Current Medications Amoxicillin (Amoxicillin -) 1,000 mg PO BID [facility] Last Admin: 06/01/19 11:20 Dose: 1,000 mg Ascorbic Acid (Vitamin C -) 500 mg PO DAILY [facility] Last Admin: 06/01/19 16:06 Dose: 500 mg Clarithromycin (Biaxin -) 500 mg PO BID [facility] Last Admin: 06/01/19 11:21 Dose: 500 mg Ferrous Sulfate (Feosol -) 325 mg PO DAILY [facility] Last Admin: 06/01/19 16:06 Dose: 325 mg Lisinopril (Prinivil) 5 mg PO DAILY [facility] Last Admin: 06/01/19 11:20 Dose: 5 mg Pantoprazole Sodium (Protonix -) 40 mg PO BID [facility] Last Admin: 06/01/19 11:22 Dose: 40 mg Polyethylene Glycol (Miralax (For Daily Use) -) 17 gm PO DAILY [facility] Last Admin: 06/01/19 11:21 Dose: 17 grams Home Medications Medication Instructions Recorded Atorvastatin Ca [Lipitor] 80 mg PO HS 05/10/17 Metoprolol Succinate [Toprol XL -] 50 mg PO DAILY 05/10/17 Amlodipine Besylate [Norvasc -] 5 mg PO DAILY 08/27/18 Aspirin [ASA -] 81 mg PO DAILY 08/27/18 Furosemide [Lasix -] 20 mg PO DAILY 08/27/18 Microbiology 05/27/19 19:10 Urine - Urine Clean Catch Urine Culture - Final NO GROWTH OBTAINED ASSESSMENT/PLAN: 63 y/o M, pmh of CAD s/p CABG 5 years ago at [facility], prior transfusions for GI bleed, PUD, HTN, HLD, seizure hx, presents c/o of blood in the stool likely secondary to peptic ulcers due to pertinent hx of ulcers #Hematochezia 2/2 to PUD cont IV protonix As per GI -Continue amoxicillin, clarithromycin and BID PPI therapy for total of 14 days including the days on therapy while hospitalized Will need h. pylori stool antigen in 4 weeks completion of therapy to confirm eradication Outpatient follow-up. Can dicuss colonoscopy at that time and arrange h. pylori stool antigen testing to confirm eradication. Stopped statin while he is on therapy f/u pathology Resume ASA 81mg daily if needed Iron and Vit C therapy #Normocytic anemia 2/2 to GI bleed Ferritin, iron studies, vitamin B12,- unremarkable CBC- Hb 04/20.1 #Rt ureteral stone US- right renal cyst, 4mm nephrolithiasis, mild hydronephrosis- no evidence of obstruction s/p ureteral stent-Dr. Kimble- pt will require f/u to remove stent- discussion is ongoing with social work- will f/u tomorrow #CAD s/p CABG Resume ASA 81mg daily if needed as per GI #HTN Hold all bp meds- amlodipine, metoprolol succinate #HLD Continue high-dose Lipitor #Abdominal Aortic aneurysm CT a/p- atelectasis and scarring in lung bases, [id number] renal calculi at the right ureteropelvic junction, 2.4 cm fusiform aneurysm of the mid abdominal aorta Monitor for now #DVT ppx SCDs FEN monitor lytes Low sodium diet Dispo: cont IV protonix, monitor BP closely, pain control, cnsider d/c tomorrow Visit type - Emergency Visit Emergency Visit: Yes ED Registration Date: 05/27/19 Care time: The patient presented to the Emergency Department on the above date and was hospitalized for further evaluation of their emergent condition. - New Patient This patient is new to me today: Yes Date on this admission: 06/02/19 - Critical Care Critical Care patient: No - Discharge Referral Referred to [facility] Med P.C.: No ATTENDING PHYSICIAN STATEMENT I saw and evaluated the patient. I reviewed the resident's note and discussed the case with the resident. I agree with the resident's findings and plan as documented. SUBJECTIVE: OBJECTIVE: ASSESSMENT AND PLAN:
[2019-06-02 06:44] LABS: BASO % 0.6 % (0-2.0); EOS % 3.4 % (0-4.5); HEMATOCRIT 29.6 % (35.4-49); HEMOGLOBIN 10.3 GM/dL (11.7-16.9); LYMPH % 21.5 % (8-40); MCH 31.4 pg (25.7-33.7); MCHC 34.7 g/dl (32.0-35.9); MEAN CELL VOLUME 90.5 fl (80-96); MEAN PLT VOLUME 9.1 fl (7.5-11.1); MONO % 7.4 % (3.8-10.2); NEUT % 67.1 % (42.8-82.8); PLATELET COUNT 302 K/MM3 (134-434); RBC 3.27 M/mm3 (4.00-5.60); RDW 14.8 % (11.9-15.9); WHITE BLOOD COUNT 6.4 K/mm3 (4.0-10.0)
[2019-06-02 07:13] LABS: ALBUMIN 3.6 g/dl (3.4-5.0); BILIRUBIN,TOTAL 0.6 mg/dL (0.2-1); BLOOD UREA NITROGEN 10.5 mg/dL (7-18); CALCIUM 8.7 mg/dL (8.5-10.1); CREATININE 0.9 mg/dL (0.55-1.3); POTASSIUM 3.8 mmol/L (3.5-5.1)
--- NOTE | 2019-06-02 08:39 | PN ---
Teaching Attending Note Name of Resident: Rod Haider ATTENDING PHYSICIAN STATEMENT I saw and evaluated the patient. I reviewed the resident's note and discussed the case with the resident. I agree with the resident's findings and plan as documented. SUBJECTIVE: Patient is feeling better with no acute distress. Vital Signs Temperature 98.4 F 06/02/19 05:50 Pulse Rate 75 06/02/19 05:50 Respiratory Rate 20 06/02/19 05:50 Blood Pressure 112/68 06/02/19 05:50 O2 Sat by Pulse Oximetry (%) 98 06/01/19 20:19 GENERAL: The patient is awake, alert, and fully oriented, in no acute distress. HEAD: Normal with no signs of trauma. EYES: PERRL, extraocular movements intact, sclera anicteric, conjunctiva clear. ENT: Ears normal, oropharynx clear without exudates, moist mucous membranes. NECK: Trachea midline, full range of motion, supple. LUNGS: Breath sounds equal, clear to auscultation bilaterally, no wheezes, no crackles, no accessory muscle use. HEART: Regular rate and rhythm, S1, S2 positive, 2/6 SM at base . ABDOMEN: Soft, nontender, nondistended, normoactive bowel sounds, no guarding, no rebound, no hepatosplenomegaly, no masses. EXTREMITIES: 2+ pulses, warm, well-perfused, no edema. NEUROLOGICAL: Cranial nerves II through XII grossly intact. Normal speech. PSYCH: Normal mood, normal affect. SKIN: Warm, dry, normal turgor, no rashes or lesions noted CBCD WBC 6.4 K/mm3 (4.0-10.0) 06/02/19 06:28 RBC 3.27 M/mm3 (4.00-5.60) L 06/02/19 06:28 Hgb 10.3 GM/dL (11.7-16.9) L 06/02/19 06:28 Hct 29.6 % (35.4-49) L 06/02/19 06:28 MCV 90.5 fl (80-96) 06/02/19 06:28 MCHC 34.7 g/dl (32.0-35.9) 06/02/19 06:28 RDW 14.8 % (11.9-15.9) 06/02/19 06:28 Plt Count 302 K/MM3 (134-434) 06/02/19 06:28 MPV 9.1 fl (7.5-11.1) 06/02/19 06:28 CMP Sodium 137 mmol/L (136-145) 06/02/19 06:28 Potassium 3.8 mmol/L (3.5-5.1) 06/02/19 06:28 Chloride 105 mmol/L (98-107) 06/02/19 06:28 Carbon Dioxide 26 mmol/L (21-32) 06/02/19 06:28 Anion Gap 6 MMOL/L (8-16) L 06/02/19 06:28 BUN 10.5 mg/dL (7-18) 06/02/19 06:28 Creatinine 0.9 mg/dL (0.55-1.3) 06/02/19 06:28 Random Glucose 105 mg/dL (74-106) 06/02/19 06:28 Calcium 8.7 mg/dL (8.5-10.1) 06/02/19 06:28 Total Bilirubin 0.6 mg/dL (0.2-1) 06/02/19 06:28 AST 23 U/L (15-37) 06/02/19 06:28 ALT 39 U/L (13-61) 06/02/19 06:28 Alkaline Phosphatase 96 U/L (45-117) 06/02/19 06:28 Total Protein 7.0 g/dl (6.4-8.2) 06/02/19 06:28 Albumin 3.6 g/dl (3.4-5.0) 06/02/19 06:28 CARDIAC ENZYMES Troponin I 0.02 ng/ml (0.00-0.05) 05/27/19 18:59 Home Medications Medication Instructions Recorded Atorvastatin Ca [Lipitor] 80 mg PO HS 05/10/17 Metoprolol Succinate [Toprol XL -] 50 mg PO DAILY 05/10/17 Amlodipine Besylate [Norvasc -] 5 mg PO DAILY 08/27/18 Aspirin [ASA -] 81 mg PO DAILY 08/27/18 Furosemide [Lasix -] 20 mg PO DAILY 08/27/18 Current Medications Generic Name Dose Route Start Last Admin Trade Name Freq PRN Reason Stop Dose Admin Amoxicillin 1,000 mg 05/31/19 22:00 06/01/19 21:12 Amoxicillin - PO 1,000 mg BID CLYDE Administration Ascorbic Acid 500 mg 06/01/19 15:00 06/01/19 16:06 Vitamin C - PO 500 mg DAILY CLYDE Administration Clarithromycin 500 mg 05/31/19 22:00 06/01/19 21:12 Biaxin - PO 500 mg BID CLYDE Administration Ferrous Sulfate 325 mg 06/01/19 15:00 06/01/19 16:06 Feosol - PO 325 mg DAILY CLYDE Administration Lisinopril 5 mg 06/01/19 10:00 06/01/19 11:20 Prinivil PO 5 mg DAILY CLYDE Administration Pantoprazole Sodium 40 mg 05/31/19 22:00 06/01/19 21:12 Protonix - PO 40 mg BID CLYDE Administration Polyethylene Glycol 17 gm 06/01/19 10:00 06/01/19 11:21 Miralax (For Daily Use) - PO 17 grams DAILY CLYDE Administration Assessment/Plan: Patient is a 89yo male with PMhx of PUD, upper GI Bleed, CAD s/p CABG, GERD, HTN , who presented with melena x 3 days . He was found to be anemic. # Upper GI bleed, s/o EGD , No more bleeding . HB is stable, EGD report reviewed. abnormal mucosa was found in the gastric body and gastric antrum. The mucosa was nodular , likely due to untreated H.Pylori. pathology is still pending , cont to hold asa x 5 more days per GI, single ulcer was found in the duodenal bulb with flat pigmented spot. small hiatal hernia. recommendations: avoid Nsaids, treat h.pylori with triple antibiotics: amoxicilin 1gm bid, clarithromycin 500mg bid, PPI 40mg bidx 14d, continue PPI once daily afterward. Final diagnosis of duodenal bulb ulcer Bx: duodenal mucosa with marked acute and chronic duodenitis. as per GI to continue for 14 days of triple antibiotics and to follow up with GI clinic afterward. # Obstructive R ureteral stone with R hydronephrosis: s/p stent placement , plan to remove the stent in 2 weeks on Wednesday /Lithotrispy, an appointment is given to the patient on June [address] Kimble in the [facility], at [facility]. 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 resume norvasc, and if tolerated, can resume BB. # H/o HLP: hold statin while on H.Pylori treatment per gI DVT px: SCDs
[2019-06-02] MEDS: LISINOPRIL 5 MG TABLET (FP) PO SCH (09:40)
[2019-06-02] MEDS: PANTOPRAZOLE 40 MG TABLET (FP) PO SCH (09:40)
[2019-06-02] MEDS: FERROUS SO4 325 MG TABLET (FP) PO SCH (09:40)
[2019-06-02] MEDS: AMOXICILLIN 500 MG CAPSULE (FP) PO SCH (09:40)
[2019-06-02] MEDS: ASCORBIC ACID 500 MG TABLET (FP) PO SCH (09:40)
[2019-06-02] MEDS: CLARITHROMYCIN 500 MG TABLET (UD) PO SCH (09:41)
[2019-06-02] MEDS: POLYETHYLENE GLYCOL 3350 119 GM BTL PO SCH (09:41)
[2019-06-02 14:15] VITALS: BP 135/86; PULSE 82; TEMP 98
--- NOTE | 2019-06-02 14:30 | DS ---
Physical Exam: SUBJECTIVE: Patient seen and examined. Pt asymptomatic, afebrile and has no c/ o. Pt reports he had normal brown stools today and also urinated. Otherwise has no further issues. Pt denies f/c/n/v/d, sob, chest pain, abdominal pain, abdominal distention, dyspepsia. OBJECTIVE: Vital Signs Period Temp Pulse Resp BP Sys/Easley Pulse Ox Last 24 Hr 97.6 F-98.4 F 71-82 18-20 112-135/54-86 97-99 PHYSICAL EXAM GENERAL: Awake, alert, and fully oriented, in no acute distress. EYES: Pupils equal, round and reactive to light, extraocular movements intact, EARS, NOSE, THROAT: Moist mucous membranes. NECK: Normal range of motion, supple LUNGS: Breath sounds equal, clear to auscultation bilaterally. No wheezes, and no crackles. HEART: Regular rate and rhythm, normal S1 and S2 without murmur, rub or gallop. ABDOMEN: Soft, LUQ pain- improved from yesterday, not distended, normoactive bowel sounds, no guarding, no rebound, no masses. UPPER EXTREMITIES: 2+ pulses, warm, well-perfused. No cyanosis. LOWER EXTREMITIES: 2+ pulses, warm, well-perfused. PSYCHIATRIC: Cooperative. Good eye contact. Appropriate mood and affect. LABS Laboratory Results - last 24 hr CBC,CMP WBC 6.4 K/mm3 (4.0-10.0) 06/02/19 06:28 RBC 3.27 M/mm3 (4.00-5.60) L 06/02/19 06:28 Hgb 10.3 GM/dL (11.7-16.9) L 06/02/19 06:28 Hct 29.6 % (35.4-49) L 06/02/19 06:28 MCV 90.5 fl (80-96) 06/02/19 06:28 MCH 31.4 pg (25.7-33.7) 06/02/19 06:28 MCHC 34.7 g/dl (32.0-35.9) 06/02/19 06:28 RDW 14.8 % (11.9-15.9) 06/02/19 06:28 Plt Count 302 K/MM3 (134-434) 06/02/19 06:28 MPV 9.1 fl (7.5-11.1) 06/02/19 06:28 Absolute Neuts (auto) 4.3 K/mm3 (1.5-8.0) 06/02/19 06:28 Neutrophils % 67.1 % (42.8-82.8) 06/02/19 06:28 Lymphocytes % 21.5 % (8-40) D 06/02/19 06:28 Monocytes % 7.4 % (3.8-10.2) 06/02/19 06:28 Eosinophils % 3.4 % (0-4.5) 06/02/19 06:28 Basophils % 0.6 % (0-2.0) 06/02/19 06:28 Nucleated RBC % 0 % (0-0) 06/02/19 06:28 Sodium 137 mmol/L (136-145) 06/02/19 06:28 Potassium 3.8 mmol/L (3.5-5.1) 06/02/19 06:28 Chloride 105 mmol/L (98-107) 06/02/19 06:28 Carbon Dioxide 26 mmol/L (21-32) 06/02/19 06:28 Anion Gap 6 MMOL/L (8-16) L 06/02/19 06:28 BUN 10.5 mg/dL (7-18) 06/02/19 06:28 Creatinine 0.9 mg/dL (0.55-1.3) 06/02/19 06:28 Est GFR (CKD-EPI)AfAm 104.98 06/02/19 06:28 Est GFR (CKD-EPI)NonAf 90.58 06/02/19 06:28 Random Glucose 105 mg/dL (74-106) 06/02/19 06:28 Calcium 8.7 mg/dL (8.5-10.1) 06/02/19 06:28 Phosphorus 3.0 mg/dL (2.5-4.9) 05/30/19 05:54 Magnesium 2.3 mg/dL (1.8-2.4) 05/30/19 05:54 Iron 73 ug/dL (50-175) 05/28/19 07:20 TIBC 300 ug/dL (250-450) 05/28/19 07:20 Iron Saturation 24 % (17.5-39) 05/28/19 07:20 Unsaturated IBC 227 ug/dL (200-275) 05/28/19 07:20 Ferritin 35.3 ng/ml (8-388) 05/28/19 07:20 Total Bilirubin 0.6 mg/dL (0.2-1) 06/02/19 06:28 AST 23 U/L (15-37) 06/02/19 06:28 ALT 39 U/L (13-61) 06/02/19 06:28 Alkaline Phosphatase 96 U/L (45-117) 06/02/19 06:28 Troponin I 0.02 ng/ml (0.00-0.05) 05/27/19 18:59 Total Protein 7.0 g/dl (6.4-8.2) 06/02/19 06:28 Albumin 3.6 g/dl (3.4-5.0) 06/02/19 06:28 Vitamin B12 440 pg/ml (193-986) 05/28/19 07:20 Current Medications Amoxicillin (Amoxicillin -) 1,000 mg PO BID [facility] Last Admin: 06/02/19 09:40 Dose: 1,000 mg Ascorbic Acid (Vitamin C -) 500 mg PO DAILY [facility] Last Admin: 06/02/19 09:40 Dose: 500 mg Clarithromycin (Biaxin -) 500 mg PO BID [facility] Last Admin: 06/02/19 09:41 Dose: 500 mg Ferrous Sulfate (Feosol -) 325 mg PO DAILY [facility] Last Admin: 06/02/19 09:40 Dose: 325 mg Lisinopril (Prinivil) 5 mg PO DAILY [facility] Last Admin: 06/02/19 09:40 Dose: 5 mg Pantoprazole Sodium (Protonix -) 40 mg PO BID [facility] Last Admin: 06/02/19 09:40 Dose: 40 mg Polyethylene Glycol (Miralax (For Daily Use) -) 17 gm PO DAILY [facility] Last Admin: 06/02/19 09:41 Dose: Not Given Home Medications Medication Instructions Recorded Atorvastatin Ca [Lipitor] 80 mg PO HS 05/10/17 Aspirin [ASA -] 81 mg PO DAILY 08/27/18 Furosemide [Lasix -] 20 mg PO DAILY 08/27/18 Amoxicillin - [Amoxicillin 500mg 1,000 mg PO BID #22 capsule 06/02/19 Capsule -] Clarithromycin [Biaxin -] 500 mg PO BID #22 tablet 06/02/19 Docusate Sodium [Colace -] 100 mg PO BID #60 capsule 06/02/19 Ferrous Sulfate [Feosol] 325 mg PO DAILY #30 ud 06/02/19 Lisinopril [Prinivil] 5 mg PO DAILY #30 tablet 06/02/19 Pantoprazole Sodium [Protonix -] 40 mg PO BID #22 tablet.ec 06/02/19 Microbiology 05/27/19 19:10 Urine - Urine Clean Catch Urine Culture - Final NO GROWTH OBTAINED HOSPITAL COURSE: Date of Admission:05/27/19 63 y/o M, pmh of CAD s/p CABG 5 years ago at [facility], prior transfusions for GI bleed, PUD, HTN, HLD, seizure hx, presents c/o of blood in the stool likely secondary to peptic ulcers due to pertinent hx of ulcers. Pt underwent endoscopy, which found one non-bleeding ulcer which resembled a possible H- pylori infection. Bx was sent and pt was started on triple therapy. Bx returned neg for H-pyori. On Ultrasound, pt was found to have a 4mm renal stone and mild hydronephrosis of the right kidney and had to undergo a right ureteral stent placement by Dr. Feliciano. Pt was discharged home after his bleeding resolved and was given an appt for June 13 to return to have his stent removed. In August 2018, he was admitted for a blood in the stool 2/2 to a PUD diagnosed on EGD, requiring a transfusion at the time. The EGD showed small nonbleeding ulcer in duodenal bulb vs. pyloric channel as likely source of bleed. Pt was suppose to f/u with his GI doctor, but due to lack of insurance, he was not able to f/u. Pt also reports a similar episode 10 years ago, during which he required a transfusion and a EGD also. #Hematochezia 2/2 to PUD As per GI -Continue amoxicillin, clarithromycin and BID PPI therapy for total of 14 days including the days on therapy while hospitalized Will need h. pylori stool antigen in 4 weeks completion of therapy to confirm eradication Outpatient follow-up. Can dicuss colonoscopy at that time and arrange h. pylori stool antigen testing to confirm eradication. #Rt ureteral stone US- right renal cyst, 4mm nephrolithiasis, mild hydronephrosis- no evidence of obstruction s/p ureteral stent-Dr. Kimble- pt will require f/u to remove stent Date of Discharge: 06/02/19 Minutes to complete discharge: 35 Discharge Summary Problems reviewed: Yes Reason For Visit: GASTROINTESTINAL HEMORRHAGE Current Active Problems Hypotension (Acute) Condition: Improved - Instructions Diet, Activity, Other Instructions: You were admitted to the hospital for blood in your stool. While you were here we gave you a unit transfusion of blood and we did a endoscopy to look at your stomach. We found that you had an infection causing inflammation. To treat this infection please take: Amoxicillin 1,000 mg by mouth twice a day for 11 more days Clarithromycin 500 mg by mouth twice a day for 11 more days Protonix 40 mg by mouth twice a day for 11 more days After you complete treatment it is very important that you follow up with Dr. Coles to make sure the infection is gone. While you were here you were also found to have a stone in your ureter. Our Urologist places a stent. This stent needs to be removed on June 13, at 2pm you have an appointment with the operating room in [facility] WITH , THE UROLOGIST . You have an appointment to come back and have the stent removed so make sure you follow up with Dr. Kimble. You r blood pressure has been controlled here so we stopped your Amldoipine and Metoprolol. Do NOT take your amlodipine or metoprolol until you follow up with your primary care doctor and they tell you to restart it. To control your blood pressure please take: Lisinopril 5 mg by mouth daily Continue your Aspirin and stop Atorvastatin for 14 days. Make sure to follow up with your Primary Care physician within one week. Return to the Emergency Department if you have any nausea, vomting, headache, dizziness, chest pain, or shortness of breath. Referrals: [facility] [place] [Provider Group] Moody Kimble MD [Staff Physician] - 06/13/19 2:00 pm (AT THE OPERATING ROOM [facility] ) Asad Coles DO [Staff Physician] - Disposition: HOME - Home Medications Comprehensive Discharge Medication List: Ambulatory Orders Atorvastatin Ca [Lipitor] 80 mg PO HS 05/10/17 Aspirin [ASA -] 81 mg PO DAILY 08/27/18 Furosemide [Lasix -] 20 mg PO DAILY 08/27/18 Amoxicillin - [Amoxicillin 500mg Capsule -] 1,000 mg PO BID #22 capsule Clarithromycin [Biaxin -] 500 mg PO BID #22 tablet 06/02/19 Docusate Sodium [Colace -] 100 mg PO BID #60 capsule 06/02/19 Ferrous Sulfate [Feosol] 325 mg PO DAILY #30 ud 06/02/19 Lisinopril [Prinivil] 5 mg PO DAILY #30 tablet 06/02/19 Pantoprazole Sodium [Protonix -] 40 mg PO BID #22 tablet.ec 06/02/19 This patient is new to me today: Yes Date on this admission: 06/02/19 Emergency Visit: Yes ED Registration Date: 05/27/19 Care time: The patient presented to the Emergency Department on the above date and was hospitalized for further evaluation of their emergent condition. Critical Care patient: No - Discharge Referral Referred to [facility] Med [facility] No ATTENDING PHYSICIAN STATEMENT I saw and evaluated the patient. I reviewed the resident's note and discussed the case with the resident. I agree with the resident's findings and plan as documented. SUBJECTIVE: OBJECTIVE: ASSESSMENT AND PLAN:
== END 2019-06-02 14:04 | disposition home or self-care (01) | DRG 241 ==
LOC: JER 17:59 → JERBED 20:08 → J5S 21:40 → JICU 05-28 09:08 → J4W 05-29 23:19
PROVIDERS: ADMIT Internal Medicine; ATTEND Internal Medicine
PROC: 0DB98ZX Excision of Duodenum, Via Natural or Artificial Opening Endoscopic, Diagnostic (ICD-10-PCS; principal; 2019-05-29 12:15)
PROC: 0T768DZ Dilation of Right Ureter with Intraluminal Device, Via Natural or Artificial Opening Endoscopic (ICD-10-PCS; 2019-05-31 16:00)
DX: K26.4 Chronic or unspecified duodenal ulcer with hemorrhage (principal); I95.9 Hypotension, unspecified; E83.39 Other disorders of phosphorus metabolism; N28.1 Cyst of kidney, acquired; K21.9 Gastro-esophageal reflux disease without esophagitis; I10 Essential (primary) hypertension; E78.5 Hyperlipidemia, unspecified; I25.10 Atherosclerotic heart disease of native coronary artery without angina pectoris; Z95.1 Presence of aortocoronary bypass graft; D64.9 Anemia, unspecified; I71.4 Abdominal aortic aneurysm, without rupture; J98.11 Atelectasis; D62 Acute posthemorrhagic anemia; G40.909 Epilepsy, unspecified, not intractable, without status epilepticus; N13.2 Hydronephrosis with renal and ureteral calculous obstruction; K44.9 Diaphragmatic hernia without obstruction or gangrene; B96.81 Helicobacter pylori [H. pylori] as the cause of diseases classified elsewhere; E66.9 Obesity, unspecified; Z68.26 Body mass index [BMI] 26.0-26.9, adult
CPT/HCPCS: 36415; 36430; 74176-TC; 76000-TC-FY; 76775-TC; 80048; 80053; 81003; 82272; 82607; 82728; 83540; 83550; 83735; 84100; 84484; 85025; 85027; 85610; 85730; 86850; 86900; 86901; 86922; 87086; 88305-TC; 93005; 93010; 94760; 99284-25; J7030; P9058

== ENCOUNTER 2019-06-27 06:04 | Day surgery (SDC) | payer OTHER ==
[2019-06-26 18:11] VITALS: BMI 27.3
[2019-06-27] MEDS ORDERED: MIDAZOLAM HCL 2 MG/2 ML SINGLE DOSE VIAL ONE (07:57)
[2019-06-27] MEDS ORDERED: PROPOFOL 20 ML ONE (07:57)
[2019-06-27] MEDS ORDERED: LIDOCAINE HCL/PF 2% SDV 5ML VIAL ONE (07:57)
[2019-06-27] MEDS ORDERED: KETAMINE HCL 200 MG/20 ML VIAL ONE (08:02)
[2019-06-27] MEDS ORDERED: ceFAZolin SODIUM 1 GM VIAL ONE (08:14)
[2019-06-27] MEDS ORDERED: ceFAZolin SODIUM 1 GM VIAL IVPB ONE (08:19)
[2019-06-27 09:35] VITALS: TEMP 97.3
--- NOTE | 2019-06-27 09:56 | OP ---
Operative Note - Note: Operative Date: 06/27/19 Pre-Operative Diagnosis: Right Ureteral Stone Operation: ESWL Findings: 1.3 cm stone just beyond RUPJ Post-Operative Diagnosis: Same as Pre-op Surgeon: Moody Kimble Anesthesia: MAC Estimated Blood Loss (mls): 0 Operative Report Dictated: Yes
--- NOTE | 2019-06-27 10:24 | OP ---
DATE OF OPERATION: 06/27/2019 PREOPERATIVE DIAGNOSIS: A 1.3-cm stone in the upper ureter on the right side. POSTOPERATIVE DIAGNOSIS: A 1.3-cm stone in the upper ureter on the right side. PROCEDURE: Extracorporeal shockwave lithotripsy. ATTENDING SURGEON: Moody Kimble MD ANESTHESIA: MAC. PROCEDURE IN DETAIL: The patient was brought into the operating room. Timeout performed. IV Ancef was then administered. X-rays were taken in the room and confirmed the presence of an approximately 1.3-cm radiopaque stone just distal to the right UPJ. A stent was in place. With head and foot films taken so as to pinpoint the shockwave beam, treatment was initiated at a rate of 60 and at the lowest power setting which was increased every 50 shocks until 18 out of 20 was reached. Approximately every 400 shocks, repeat films were taken to ensure that the stone remained in focus of the shockwave. At approximately 1500 shocks the stone appeared to have changed shape and to have fragmented. The rate was maintained at 60; however, at 2000 shocks, the power setting was increased to 20 and maintained at that level until 2500 shocks in total were administered. The final x-ray did suggest that the stone was fragmented therein. Patient will require further x-rays as an outpatient. There were no complications. The patient tolerated the procedure well and left the OR in stable and satisfactory condition. MD BERONICA DE LA [id number]
[2019-06-27 11:59] VITALS: BP 116/71; PULSE 63
== END 2019-06-27 11:20 | disposition home or self-care (01) ==
LOC: JASU-SURG 06:04
PROVIDERS: ATTEND Urology
PROC: 0TF6XZZ Fragmentation in Right Ureter, External Approach (ICD-10-PCS; principal; 2019-06-27 08:00)
DX: N20.1 Calculus of ureter (principal)